=== PATIENT | female | born 1940 | race Caucasian/White ===

== ENCOUNTER 2020-10-03 12:07 | Inpatient (IN) | payer MEDICARE ==
--- NOTE | 2020-10-03 15:15 | Event Note ---
ED Screening Note Date of service: 10/03/20 Time: 15:13 ED Screening Note: 80-year-old female patient with history of atrial fibrillation and DVTs (currently anticoagulated) presents to the emergency department with complaints of bilateral lower extremity pain/swelling/redness for 2 weeks. States she was prescribed an antibiotic but cannot recall which one. States antibiotic has not been helpful. Symptoms worse on the right. General: Awake, appropriately interactive, no acute distress. Neck: Supple. Full range of motion intact. Cardiovascular: Normal peripheral perfusion. Bilateral pedal edema. Significant pretibial pitting edema of the right lower extremity. Pulmonary: No respiratory distress. Patient is speaking normally without use of accessory muscles. Supplemental O2 in place. Skin: Diffuse bilateral lower extremity erythema with overlying warmth, more pronounced on the right. Neurological: No facial asymmetry. Speech is clear. Follows commands. Patient is alert and oriented. Musculoskeletal: Moves all four extremities spontaneously with normal range of motion. Psych: Cooperative. Appropriate mood and affect. I have greeted and performed a focused rapid initial assessment of this patient. A comprehensive ED assessment and evaluation of the patient, analysis of all test results, and completion of the medical decision-making process will be conducted by additional ED providers. This initial assessment/diagnostic orders/clinical plan/treatment(s) is/are subject to change based on patients health status, clinical progression and re-assessment. Further treatment and workup at subsequent clinical provider's discretion. Patient/guardian urged not to elope from the ED as their condition may be serious if not clinically assessed and managed.
[2020-10-03 16:07] LABS: Basophils # (Auto) 0.1 K/mm3 (0.0-0.1); Basophils % (Auto) 0.5 % (0.0-1.8); Eosinophils # (Auto) 0.2 K/mm3 (0.0-0.4); Eosinophils % (Auto) 1.2 % (0.0-4.3); Hematocrit 30.6 % (30.3-42.9); Hemoglobin 9.7 gm/dl (10.1-14.3); Lymphocytes # (Auto) 1.7 K/mm3 (1.2-5.4); Lymphocytes % (Auto) 13.4 % (13.4-35.0); Mean Corpuscular HGB Conc 32 % (30-34); Mean Corpuscular Volume 88 fl (79-97); Monocytes # (Auto) 0.9 K/mm3 (0.0-0.8); Platelet Count 403 K/mm3 (140-440); Red Blood Count 3.46 M/mm3 (3.65-5.03); Red Cell Distribution Width 16.1 % (13.2-15.2)
[2020-10-03 16:12] LABS: Albumin 3.3 g/dL (3.9-5); Calcium 9.1 mg/dL (8.4-10.2)
--- NOTE | 2020-10-03 16:24 | Vascular Lab Report ---
DUPLEX DOPPLER LOWER EXTREMITY VEINS, RIGHT INDICATION / CLINICAL INFORMATION: RLE pain/swelling. TECHNIQUE: Duplex doppler imaging was performed through the veins of the right lower extremity using venous comp ression and other maneuvers. COMPARISON: None available. FINDINGS: RIGHT COMMON FEMORAL VEIN: Negative. RIGHT FEMORAL VEIN: Negative. RIGHT POPLITEAL VEIN: Negative. RIGHT CALF VEINS: Negative. ADDITIONAL FINDINGS: None. IMPRESSION: 1. No sonographic evidence for DVT in the right lower extremity. Signer Name: Emmanuel Talavera MD Signed: 10/03/2020 4:20 PM Workstation Name: [id number]
--- NOTE | 2020-10-03 16:36 | XRay Report ---
CHEST 2 VIEWS INDICATION / CLINICAL INFORMATION: bilat extremity edema; O2 dependent. COMPARISON: None available. FINDINGS: SUPPORT DEVICES: None. HEART / MEDIASTINUM: Heart size appears normal. 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 LUNGS / PLEURA: No significant pulmonary or pleural abnormality. No pneumothorax. ADDITIONAL FINDINGS: No significant additional findings. IMPRESSION: 1. No acute findings. Signer Name: Emmanuel Talavera MD Signed: 10/03/2020 4:32 PM Workstation Name: [id number]
[2020-10-03] MEDS ORDERED: FUROSEMIDE 100 MG/10 ML INJ IV ONE (21:18)
--- NOTE | 2020-10-03 21:18 | Emergency Department Report ---
HPI - General Chief Complaint: Extremity Problem,Nontraumatic Time Seen by Provider: 10/03/20 20:40 - HPI HPI: 80-year-old female with very complex medical history brought from her halfway due to significant lower extremity swelling over the past 2 weeks. The right lower extremity has been more swollen than the left. The patient states that she was put on antibiotics but it did not improve swelling. Other than the swelling in her legs which are causing her pain, she denies any associated chest pain, shortness of breath, cough, abdominal pain, fever/chills, syncope, weakness, or any other complaints. I placed a call to the patient's halfway where I spoke with a nurse from her for who indicated that the patient was placed on 10 days of antibiotics for suspected bilateral lower extremity cellulitis but this did not change the swelling. The nurse stated that Dr. Ferguson sent her to our hospital for labs, DVT ultrasound, and admission to the hospital. ED Past Medical Hx - Past Medical History Previous Medical History?: Yes Hx Hypertension: Yes Hx Congestive Heart Failure: Yes Hx GERD: Yes Hx Kidney Stones: Yes Hx Psychiatric Treatment: Yes Hx COPD: Yes Additional medical history: Gout ED Review of Systems ROS: Stated complaint: BILATERAL LEG SWELLING Other details as noted in HPI Constitutional: denies: chills, fever Eyes: denies: eye pain, vision change ENT: denies: throat pain, epistaxis Respiratory: shortness of breath (No worse than normal). denies: cough Cardiovascular: edema. denies: chest pain Gastrointestinal: denies: abdominal pain, vomiting Genitourinary: denies: dysuria Neurological: denies: headache, weakness Physical Exam - Physical Exam Vital Signs: Vital Signs 10/03/20 10/03/20 10/03/20 12:37 20:44 20:45 Temperature 98.7 F Pulse Rate 62 76 77 Respiratory 13 16 26 H Rate Blood Pressure 139/60 150/70 O2 Sat by Pulse 96 Oximetry 10/03/20 21:00 Temperature Pulse Rate 71 Respiratory 21 Rate Blood Pressure 142/74 O2 Sat by Pulse Oximetry Physical Exam: GENERAL: Well developed. Well nourished. No acute distress HEENT: Normocephalic. Atratumatic. Moist mucous membranes. EYES: Extraocular movements are intact. Pupils are equal round and reactive to light bilaterally NECK: Supple. Trachea is midline. LUNGS: Equal chest rise bilaterally. There are globally decreased breath sounds with end expiratory wheezing throughout. Difficult to assess the presence of rales. HEART/CARDIOVASCULAR: Regular rate and rhythm. No murmurs or rubs. ABDOMEN: Abdomen is soft and nondistended. . No significant tenderness, guarding or rebound. VASCULAR: There is 3+ pitting edema of the bilateral lower extremities which is more significant on the right side. There is severe weeping with scattered bruises and skin tears noted to both lower extremities. The swelling on the right extends all the way up to the thigh whereas the swelling on the left extends fpc up the thigh. There is no significant warmth compared to the rest of the body. NEURO: Patient is awake, alert, and oriented. No focal deficits. Normal motor and sensory exam throughout. Normal speech. Normal gait. MUSCULOSKELETAL: Normal ROM throughout. There is no tenderness or deformity. ED Course Vital Signs 10/03/20 10/03/20 10/03/20 12:37 20:44 20:45 Temperature 98.7 F Pulse Rate 62 76 77 Respiratory 13 16 26 H Rate Blood Pressure 139/60 150/70 O2 Sat by Pulse 96 Oximetry 10/03/20 21:00 Temperature Pulse Rate 71 Respiratory 21 Rate Blood Pressure 142/74 O2 Sat by Pulse Oximetry ED Medical Decision Making - Lab Data Result diagrams: 10/03/20 15:15 10/03/20 15:15 Laboratory Results - last 24 hr 10/03/20 10/03/20 10/03/20 15:15 15:15 15:15 WBC 12.6 H RBC 3.46 L Hgb 9.7 L Hct 30.6 MCV 88 MCH 28 MCHC 32 RDW 16.1 H Plt Count 403 Lymph % (Auto) 13.4 [place] % (Auto) 7.0 Eos % (Auto) 1.2 Baso % (Auto) 0.5 Lymph # (Auto) 1.7 [place] # (Auto) 0.9 H Eos # (Auto) 0.2 Baso # (Auto) 0.1 Seg Neutrophils % 77.9 H Seg Neutrophils # 9.8 H PT INR Sodium 131 L Potassium 4.6 Chloride 91.3 L Carbon Dioxide 29 Anion Gap 15 BUN 27 H Creatinine 1.1 Estimated GFR 48 BUN/Creatinine Ratio 25 Glucose 110 H Calcium 9.1 Magnesium 1.90 Total Bilirubin 0.20 AST 9 ALT 6 L Alkaline Phosphatase 104 Troponin T NT-Pro-B Natriuret Pep 3816 H Total Protein 7.0 Albumin 3.3 L Albumin/Globulin Ratio 0.9 10/03/20 10/03/20 21:03 21:03 WBC RBC Hgb Hct MCV MCH MCHC RDW Plt Count Lymph % (Auto) [place] % (Auto) Eos % (Auto) Baso % (Auto) Lymph # (Auto) [place] # (Auto) Eos # (Auto) Baso # (Auto) Seg Neutrophils % Seg Neutrophils # PT 33.2 H INR 3.23 H Sodium Potassium Chloride Carbon Dioxide Anion Gap BUN Creatinine Estimated GFR BUN/Creatinine Ratio Glucose Calcium Magnesium Total Bilirubin AST ALT Alkaline Phosphatase Troponin T 0.021 NT-Pro-B Natriuret Pep Total Protein Albumin Albumin/Globulin Ratio - EKG Data -: EKG Interpreted by Me - EKG Data 10/04/20 00:02 Atrial fibrillation. Normal axis. Otherwise normal intervals. No significant ST segment or T wave abnormalities. - Radiology Data CHEST 2 VIEWS INDICATION / CLINICAL INFORMATION: bilat extremity edema; O2 dependent. COMPARISON: None available. FINDINGS: SUPPORT DEVICES: None. HEART / MEDIASTINUM: Heart size appears normal. Previous aortic stent graft placement noted with residual aneurysm of the descending thoracic aorta.. LUNGS / PLEURA: No significant pulmonary or pleural abnormality. No pneumothorax. ADDITIONAL FINDINGS: No significant additional findings. IMPRESSION: 1. No acute findings. Signer Name: Emmanuel Talavera MD Signed: 10/03/2020 3:32 PM Workstation Name: [email or web address] DUPLEX DOPPLER LOWER EXTREMITY VEINS, RIGHT INDICATION / CLINICAL INFORMATION: RLE pain/swelling. TECHNIQUE: Duplex doppler imaging was performed through the veins of the right lower extremity using venous compression and other maneuvers. COMPARISON: None available. FINDINGS: RIGHT COMMON FEMORAL VEIN: Negative. RIGHT FEMORAL VEIN: Negative. RIGHT POPLITEAL VEIN: Negative. RIGHT CALF VEINS: Negative. ADDITIONAL FINDINGS: None. IMPRESSION: 1. No sonographic evidence for DVT in the right lower extremity. Signer Name: Emmanuel Talavera MD Signed: 10/03/2020 3:20 PM Workstation Name: [email or web address] - Medical Decision Making 80-year-old female with very complex medical history sent from her halfway due to right greater than left lower extremity swelling. Initially, cellulitis was suspected and the patient was placed on antibiotics for 10 days without significant improvement. According to the nurse at her halfway she was sent here for further labs and DVT ultrasound as well as admission. She is afebrile and with unremarkable vital signs. She is in no acute distress. Physical exam reveals very significant bilateral lower extremity pitting edema with weeping. On the right side the swelling is more significant and extends all the way up the thigh. There is scattered bruising and skin tears noted as well. There is no warmth to suggest infection. Full set of labs were ordered as well as DVT ultrasound. Labs reveal no significant abnormalities with the exception of elevated BNP of 3800 and very mildly elevated troponin of 0.02 and INR of 3.2. Chest x-ray shows no significant abnormalities although there are scattered opacities which could represent volume overload. DVT ultrasound of the right lower extremity reveals no evidence of DVT. At 9:20 PM I spoke with Dr. Quintanilla who is covering for the patient's Dr., Dr. Jordan perla. We discussed the results and he states that Dr. Ferguson wanted the patient admitted for diuresis. We will give 60 mg of IV Lasix and admit the patient to medicine for further management. Critical Care Time: No Critical care attestation.: If time is entered above; I have spent that time in minutes in the direct care of this critically ill patient, excluding procedure time. ED Disposition Clinical Impression: Volume overload, CHF (congestive heart failure) Disposition: OP ADMIT IP TO THIS HOSP Is pt being admited?: Yes Condition: Fair
[2020-10-03 21:26] LABS: INR 3.23 (0.87-1.13)
[2020-10-03] MEDS ORDERED: NITROGLYCERIN 0.4 MG TAB SUBL SL PRN (22:29)
[2020-10-03] MEDS ORDERED: hydrALAZINE 20 MG/1 ML INJ IV PRN (22:31)
--- NOTE | 2020-10-03 22:38 | History and Physical Report ---
History of Present Illness Date of examination: 10/03/20 Date of admission: 10/03/20 Chief complaint: Bilateral lower extremity swelling/cellulitis History of present illness: 80-year-old female with past medical history of hypertension, congestive heart failure, GERD kidney stone COPD and gout was brought from her halfway due to significant lower extremity swelling over the past 2 weeks. The right lower extremity has been more swollen than the left. The patient states that she was put on antibiotics but it did not improve swelling. Other than the swelling in her legs which are causing her pain, she denies any associated chest pain, shortness of breath, cough, abdominal pain, fever/chills, syncope, weakness, or any other complaints. In the emergency room patient is found to have volume overloaded/CHF exacerbation and proBNP is 3816, troponin 0 0.021. Also patient has bilateral lower extremity cellulitis, WBCs 12.6 Past History Past Medical History: COPD, GERD, heart failure, hypertension, other (Kidney stones, psych problem, COPD and gout) Medications and Allergies Allergies Allergy/AdvReac Type Severity Reaction Status Date / Time cephalexin [From Keflex] Allergy Hives Verified 10/03/20 12:38 Sulfa (Sulfonamide Allergy Hives Verified 10/03/20 12:38 Antibiotics) magnesium hydroxide AdvReac Unknown Verified 10/03/20 12:38 [From Milk of Magnesia] Review of Systems Musculoskeletal: other (Bilateral lower extremity swelling, cellulitis) Exam - Constitutional Vitals: Temp Pulse Resp BP Pulse Ox 98.7 F 67 15 161/62 78 L 10/03/20 12:37 10/03/20 22:30 10/03/20 22:30 10/03/20 22:30 10/03/20 22:30 General appearance: Present: no acute distress, well-nourished - EENT Eyes: Present: PERRL ENT: hearing intact, clear oral mucosa - Neck Neck: Present: supple, normal ROM - Respiratory Respiratory effort: normal Respiratory: bilateral: CTA - Cardiovascular Heart Sounds: Present: S1 & S2. Absent: rub, click - Extremities Extremities: pulses symmetrical Extremity abnormal: edema, erythema Peripheral Pulses: within normal limits - Abdominal General gastrointestinal: Present: soft, non-tender, non-distended, normal bowel sounds Female genitourinary: Present: normal - Integumentary Integumentary: Present: clear, warm, dry - Musculoskeletal Musculoskeletal: gait normal, strength equal bilaterally - Psychiatric Psychiatric: appropriate mood/affect, intact judgment & insight - Neurologic Neurologic: CNII-XII intact, moves all extremities HEART Score - HEART Score Troponin: Troponin T 0.021 ng/mL (0.00-0.029) 10/03/20 21:03 Results - Labs CBC & Chem 7: 10/03/20 15:15 10/03/20 15:15 Labs: Laboratory Last Values WBC 12.6 K/mm3 (4.5-11.0) H 10/03/20 15:15 RBC 3.46 M/mm3 (3.65-5.03) L 10/03/20 15:15 Hgb 9.7 gm/dl (10.1-14.3) L 10/03/20 15:15 Hct 30.6 % (30.3-42.9) 10/03/20 15:15 MCV 88 fl (79-97) 10/03/20 15:15 MCH 28 pg (28-32) 10/03/20 15:15 MCHC 32 % (30-34) 10/03/20 15:15 RDW 16.1 % (13.2-15.2) H 10/03/20 15:15 Plt Count 403 K/mm3 (140-440) 10/03/20 15:15 Lymph % (Auto) 13.4 % (13.4-35.0) 10/03/20 15:15 [place] % (Auto) 7.0 % (0.0-7.3) 10/03/20 15:15 Eos % (Auto) 1.2 % (0.0-4.3) 10/03/20 15:15 Baso % (Auto) 0.5 % (0.0-1.8) 10/03/20 15:15 Lymph # (Auto) 1.7 K/mm3 (1.2-5.4) 10/03/20 15:15 [place] # (Auto) 0.9 K/mm3 (0.0-0.8) H 10/03/20 15:15 Eos # (Auto) 0.2 K/mm3 (0.0-0.4) 10/03/20 15:15 Baso # (Auto) 0.1 K/mm3 (0.0-0.1) 10/03/20 15:15 Seg Neutrophils % 77.9 % (40.0-70.0) H 10/03/20 15:15 Seg Neutrophils # 9.8 K/mm3 (1.8-7.7) H 10/03/20 15:15 PT 33.2 Sec. (12.2-14.9) H 10/03/20 21:03 INR 3.23 (0.87-1.13) H 10/03/20 21:03 Sodium 131 mmol/L (137-145) L 10/03/20 15:15 Potassium 4.6 mmol/L (3.6-5.0) 10/03/20 15:15 Chloride 91.3 mmol/L (98-107) L 10/03/20 15:15 Carbon Dioxide 29 mmol/L (22-30) 10/03/20 15:15 Anion Gap 15 mmol/L 10/03/20 15:15 BUN 27 mg/dL (7-17) H 10/03/20 15:15 Creatinine 1.1 mg/dL (0.6-1.2) 10/03/20 15:15 Estimated GFR 48 ml/min 10/03/20 15:15 BUN/Creatinine Ratio 25 % 10/03/20 15:15 Glucose 110 mg/dL (65-100) H 10/03/20 15:15 Calcium 9.1 mg/dL (8.4-10.2) 10/03/20 15:15 Magnesium 1.90 mg/dL (1.7-2.3) 10/03/20 15:15 Total Bilirubin 0.20 mg/dL (0.1-1.2) 10/03/20 15:15 AST 9 units/L (5-40) 10/03/20 15:15 ALT 6 units/L (7-56) L 10/03/20 15:15 Alkaline Phosphatase 104 units/L (35-129) 10/03/20 15:15 Troponin T 0.021 ng/mL (0.00-0.029) 10/03/20 21:03 NT-Pro-B Natriuret Pep 3816 pg/mL (0-900) H 10/03/20 15:15 Total Protein 7.0 g/dL (6.3-8.2) 10/03/20 15:15 Albumin 3.3 g/dL (3.9-5) L 10/03/20 15:15 Albumin/Globulin Ratio 0.9 % 10/03/20 15:15 - Imaging and Cardiology Chest x-ray: report reviewed Assessment and Plan VTE prophylaxis?: Chemical Plan of care discussed with patient/family: Yes - Patient Problems (1) CHF (congestive heart failure) Current Visit: Yes Status: Acute Plan to address problem: Admit the patient to the medical floor. Put the patient on cardiac diet. Lasix 40 mg IV daily. Fluid restriction. Will maintain intake and output. Daily weight. Echocardiogram. If needed will consult cardiology (2) Volume overload Current Visit: Yes Status: Acute Plan to address problem: Put the patient on cardiac diet. Lasix 40 mg IV daily. Fluid restriction. Will maintain intake and output. Daily weight. Echocardiogram. If needed will consult cardiology (3) Cellulitis, leg Current Visit: Yes Status: Acute Plan to address problem: Levaquin 750 mg p.o. daily. We will do the wound culture and will consult wound care evaluation. Recheck CBC in the morning (4) Gout Current Visit: Yes Status: Acute Plan to address problem: Stable we will continue the home medication (5) Hypertension Current Visit: Yes Status: Acute Plan to address problem: Hydralazine 10 mg IV every 6 hours as needed. We put the patient on cardiac diet. We will monitor the blood pressure closely (6) GERD (gastroesophageal reflux disease) Current Visit: Yes Status: Acute Plan to address problem: Protonix 40 mg p.o. daily. Zofran 4 mg IV every 6 hours as needed. (7) DVT prophylaxis Current Visit: Yes Status: Acute Plan to address problem: Heparin 5000 units subcu every 8 hours for DVT prophylaxis. Protonix 40 mg p.o. daily for GI prophylaxis. Patient is a full code
[2020-10-04] MEDS: HEPARIN 5,000 UNIT/1 ML VIAL SUB-Q SCH ×3 (05:05→21:15)
[2020-10-04 06:01] LABS: Calcium 8.8 mg/dL (8.4-10.2)
[2020-10-04] MEDS: PANTOPRAZOLE 40 MG TAB PO SCH (09:31)
[2020-10-04] MEDS: FUROSEMIDE 40 MG/4 ML INJ IV SCH (09:31)
[2020-10-04] MEDS: levoFLOXacin 750 MG TAB PO SCH (09:34)
[2020-10-04] MEDS ORDERED: VANCOMYCIN/NS 1 GM/250 ML 1 GM/250 ML BAG IV SCH (10:00)
[2020-10-04] MEDS ORDERED: levoFLOXacin 750 MG TAB PO SCH (10:00)
--- NOTE | 2020-10-04 10:10 | Progress Note ---
Subjective Date of service: 10/04/20 Interval history: History of present illness: 80-year-old female with past medical history of hypertension, congestive heart failure, GERD kidney stone COPD and gout was brought from her alf due to significant lower extremity swelling over the past 2 weeks. The right lower extremity has been more swollen than the left. The patient states that she was put on antibiotics but it did not improve swelling. Other than the swelling in her legs which are causing her pain, she denies any associated chest pain, shortness of breath, cough, abdominal pain, fever/chills, syncope, weakness, or any other complaints. In the emergency room patient is found to have volume overloaded/CHF exacerbation and proBNP is 3816, troponin 0 0.021. Also patient has bilateral lower extremity cellulitis, WBCs 12.6 10/04 patient is alert and oriented and not in any distress. She offers no specific complaints except some pain in the legs right more than left She denies any fever or chills. Denies chest pain or shortness of breath. Lab results reviewed A/P: Bilateral leg edema/erythema Suspect cellulitis Rule out venous insufficiency Patient was treated with clindamycin p.o. at the nursing facility without any improvement in the erythema Since then it only got worse and now has some hemorrhagic blisters Patient was started on Levaquin We will add vancomycin Recent arterial Doppler showed no evidence of PAD Discussed with Dr. Miguel Curtis consult placed History of ischemic cardiomyopathy Check echocardiogram Chest x-ray reviewed No evidence of pulmonary edema P BNP results reviewed Cardiology consult placed Continue IV Lasix Restart on beta-héctor Telemetry Fluid restriction Monitor I's and O's History of atrial fibrillation on warfarin INR is mildly supratherapeutic Warfarin on hold Recheck INR in a.m.\ Hypertension Fair History of GERD Continue Pepcid History of anxiety/depression continue citalopram and trazodone Hypothyroidism Continue Synthroid Objective - Constitutional Vitals: Vital Signs - 12hr 10/03/20 10/03/20 10/03/20 22:16 22:30 22:32 Temperature Pulse Rate 76 67 68 Respiratory 18 15 21 Rate Blood Pressure 135/58 161/62 161/62 O2 Sat by Pulse 80 L 78 L 97 Oximetry 10/03/20 10/03/20 10/03/20 22:34 22:36 22:38 Temperature Pulse Rate 69 67 69 Respiratory 16 21 24 Rate Blood Pressure 161/62 161/62 161/62 O2 Sat by Pulse 98 99 89 Oximetry 10/03/20 10/03/20 10/03/20 22:40 22:42 22:44 Temperature Pulse Rate 68 68 65 Respiratory 18 15 19 Rate Blood Pressure 161/62 161/62 161/62 O2 Sat by Pulse 99 85 86 Oximetry 10/03/20 10/03/20 10/03/20 22:46 22:48 22:50 Temperature Pulse Rate 63 70 62 Respiratory 18 22 15 Rate Blood Pressure 161/62 161/62 161/62 O2 Sat by Pulse 78 L 89 Oximetry 10/03/20 10/03/20 10/03/20 22:52 22:53 22:54 Temperature 98.9 F Pulse Rate 65 70 Respiratory 22 20 Rate Blood Pressure 161/62 161/62 O2 Sat by Pulse 94 99 Oximetry 10/03/20 10/03/20 10/03/20 22:56 22:58 22:59 Temperature Pulse Rate 69 67 64 Respiratory 21 23 24 Rate Blood Pressure 161/62 167/74 167/74 O2 Sat by Pulse 99 97 Oximetry 10/03/20 10/03/20 10/03/20 23:00 23:02 23:04 Temperature Pulse Rate 69 64 71 Respiratory 22 18 28 H Rate Blood Pressure 167/74 167/74 167/74 O2 Sat by Pulse 91 99 97 Oximetry 10/03/20 10/03/20 10/03/20 23:06 23:08 23:10 Temperature Pulse Rate 70 67 74 Respiratory 19 18 20 Rate Blood Pressure 167/74 167/74 167/74 O2 Sat by Pulse 88 100 100 Oximetry 10/03/20 10/03/20 10/03/20 23:12 23:14 23:16 Temperature Pulse Rate 71 66 77 Respiratory 19 21 21 Rate Blood Pressure 167/74 167/74 167/74 O2 Sat by Pulse 89 100 99 Oximetry 10/03/20 10/03/20 10/03/20 23:18 23:20 23:22 Temperature Pulse Rate 69 73 67 Respiratory 19 19 19 Rate Blood Pressure 167/74 167/74 167/74 O2 Sat by Pulse 99 99 100 Oximetry 10/03/20 10/03/20 10/03/20 23:24 23:26 23:28 Temperature Pulse Rate 68 77 96 H Respiratory 18 22 28 H Rate Blood Pressure 167/74 167/74 167/74 O2 Sat by Pulse 94 88 99 Oximetry 10/03/20 10/03/20 10/03/20 23:30 23:32 23:34 Temperature Pulse Rate 91 H 78 74 Respiratory 23 19 17 Rate Blood Pressure 193/78 193/78 193/78 O2 Sat by Pulse 100 99 100 Oximetry 10/03/20 10/03/20 10/03/20 23:36 23:38 23:40 Temperature Pulse Rate 78 77 76 Respiratory 18 17 14 Rate Blood Pressure 193/78 193/78 193/78 O2 Sat by Pulse 98 98 94 Oximetry 10/03/20 10/03/20 10/03/20 23:42 23:44 23:46 Temperature Pulse Rate 78 72 74 Respiratory 12 14 16 Rate Blood Pressure 193/78 193/78 193/78 O2 Sat by Pulse 98 98 94 Oximetry 10/04/20 10/04/20 10/04/20 00:06 00:43 03:46 Temperature 98.0 F Pulse Rate 72 73 108 H Respiratory 16 29 H Rate Blood Pressure 162/50 200/111 O2 Sat by Pulse 100 89 Oximetry 10/04/20 10/04/20 10/04/20 05:01 07:50 08:00 Temperature 99.4 F 97.8 F Pulse Rate 71 60 74 Respiratory 16 20 Rate Blood Pressure 143/57 146/49 O2 Sat by Pulse 98 100 Oximetry General appearance: Present: no acute distress, well-nourished - EENT Eyes: PERRL, EOM intact ENT: hearing intact, clear oral mucosa - Neck Neck: supple, normal ROM, no masses or JVD - Respiratory Respiratory effort: normal Respiratory: bilateral: CTA - Cardiovascular Rhythm: regular Heart Sounds: Present: S1 & S2 Extremity abnormal: edema (Bilateral 2+ pitting leg edema with erythema and hemorrhagic blisters) - Gastrointestinal General gastrointestinal: Present: soft, non-tender Rectal Exam: deferred - Genitourinary Female genitourinary: deferred - Integumentary Integumentary: erythema - Musculoskeletal Musculoskeletal: strength equal bilaterally - Neurologic Neurologic: moves all extremities - Psychiatric Psychiatric: appropriate mood/affect - Labs CBC & Chem 7: 10/03/20 15:15 10/04/20 05:09 Labs: Abnormal lab results 10/03/20 10/03/20 10/03/20 Range/Units 15:15 15:15 15:15 WBC 12.6 H (4.5-11.0) K/mm3 RBC 3.46 L (3.65-5.03) M/mm3 Hgb 9.7 L (10.1-14.3) gm/dl RDW 16.1 H (13.2-15.2) % [place] # (Auto) 0.9 H (0.0-0.8) K/mm3 Seg Neutrophils % 77.9 H (40.0-70.0) % Seg Neutrophils # 9.8 H (1.8-7.7) K/mm3 PT (12.2-14.9) Sec. INR (0.87-1.13) Sodium 131 L (137-145) mmol/L Chloride 91.3 L (98-107) mmol/L Carbon Dioxide (22-30) mmol/L BUN 27 H (7-17) mg/dL Glucose 110 H (65-100) mg/dL ALT 6 L (7-56) units/L NT-Pro-B Natriuret Pep 3816 H (0-900) pg/mL Albumin 3.3 L (3.9-5) g/dL 10/03/20 10/04/20 Range/Units 21:03 05:09 WBC (4.5-11.0) K/mm3 RBC (3.65-5.03) M/mm3 Hgb (10.1-14.3) gm/dl RDW (13.2-15.2) % [place] # (Auto) (0.0-0.8) K/mm3 Seg Neutrophils % (40.0-70.0) % Seg Neutrophils # (1.8-7.7) K/mm3 PT 33.2 H (12.2-14.9) Sec. INR 3.23 H (0.87-1.13) Sodium (137-145) mmol/L Chloride 93.7 L (98-107) mmol/L Carbon Dioxide 33 H (22-30) mmol/L BUN 29 H (7-17) mg/dL Glucose 115 H (65-100) mg/dL ALT (7-56) units/L NT-Pro-B Natriuret Pep (0-900) pg/mL Albumin (3.9-5) g/dL HEART Score - HEART Score Troponin: Troponin T 0.021 ng/mL (0.00-0.029) 10/03/20 21:03
[2020-10-04] MEDS ORDERED: VANCOMYCIN 1,250 MG in SODIUM CHLORIDE 0.9% 250ML 250 ML IV ONE (11:00)
[2020-10-04] MEDS: FAMOTIDINE 20 MG TAB PO SCH ×2 (12:31→21:14)
[2020-10-04] MEDS: METOPROLOL TARTRATE 50 MG TAB PO SCH ×2 (12:32→21:14)
--- NOTE | 2020-10-04 13:48 | Consultation ---
History of Present Illness Consult date: 10/04/20 Requesting physician: MASON ALBARRAN Consult reason: abnormal cardiac enzymes, atrial fibrillation, congestive heart failure History of present illness: 80-year-old female who [facility] presented to [facility] emergency department with increasing bilateral lower extremity pain and redness. The patient had completed a 10-day course of antibiotics/clindamycin with no improvement. She has a known past medical history of permanent atrial fibrillation, deep vein thrombosis, ischemic cardiomyopathy, hypertension, history of GERD, history of anxiety/depression, and hypothyroidism. In the emergency department she was noted to have a leukocytosis of 12.6. Troponin of 0.021 and a proBNP of 3816. She had a right lower extremity venous Doppler which was negative for DVT chest x-ray was negative for any acute abnormalities. Twelve-lead EKG revealed atrial fibrillation with right bundle branch block and no acute changes. Past History Past Medical History: COPD, GERD, heart failure, hypertension, other (Kidney stones, psych problem, COPD and gout) Past Surgical History: No surgical history Social history: no significant social history Family history: no significant family history Medications and Allergies Allergies Allergy/AdvReac Type Severity Reaction Status Date / Time cephalexin [From Keflex] Allergy Hives Verified 10/03/20 12:38 Sulfa (Sulfonamide Allergy Hives Verified 10/03/20 12:38 Antibiotics) magnesium hydroxide AdvReac Unknown Verified 10/03/20 12:38 [From Milk of Magnesia] Active Meds: Active Medications Citalopram Hydrobromide (Citalopram 10 Mg Tab) 10 mg PO QDAY [facility] Famotidine (Famotidine 20 Mg Tab) 20 mg PO BID [facility] Last Admin: 10/04/20 12:31 Dose: 20 mg Documented by: Furosemide (Furosemide 40 Mg/4 Ml Inj) 40 mg IV QDAY [facility] Last Admin: 10/04/20 09:31 Dose: 40 mg Documented by: Heparin Sodium (Porcine) (Heparin 5,000 Unit/1 Ml Vial) 5,000 unit SUB-Q Q8HR [facility] Last Admin: 10/04/20 05:05 Dose: 5,000 unit Documented by: Hydralazine HCl (Hydralazine 20 Mg/1 Ml Inj) 10 mg IV Q6H PRN PRN Reason: htn Vancomycin HCl 750 mg/ Sodium (Chloride) 265 mls @ 176.667 mls/hr IV Q24H [facility] Levofloxacin (Levofloxacin 750 Mg Tab) 750 mg PO Q48HR [facility]; Protocol Last Admin: 10/04/20 09:34 Dose: 750 mg Documented by: Levothyroxine Sodium (Levothyroxine 75 Mcg Tab) 75 mcg PO DAILY@0600 [facility] Metoprolol Tartrate (Metoprolol Tartrate 50 Mg Tab) 50 mg PO BID [facility] Last Admin: 10/04/20 12:32 Dose: 50 mg Documented by: Nitroglycerin (Nitroglycerin 0.4 Mg Tab Subl) 0.4 mg SL .Q5MIN PRN PRN Reason: Chest Pain Pantoprazole Sodium (Pantoprazole 40 Mg Tab) 40 mg PO QDAC [facility] Last Admin: 10/04/20 09:31 Dose: 40 mg Documented by: Trazodone HCl (Trazodone 50 Mg Tab) 50 mg PO QHS [facility] Review of Systems Constitutional: no fever, no chills Breasts: deferred Cardiovascular: edema, no chest pain, no syncope Respiratory: no cough, no hemoptysis Gastrointestinal: no abdominal pain, no nausea, no vomiting Musculoskeletal: no neck stiffness, no neck pain Integumentary: redness, no rash, no pruritis Physical Examination Vital Signs Temp Pulse Resp BP Pulse Ox 98.7 F 62 13 139/60 96 10/03/20 12:37 10/03/20 12:37 10/03/20 12:37 10/03/20 12:37 10/03/20 12:37 General appearance: no acute distress HEENT: Positive: PERRL Neck: Positive: neck supple, trachea midline Cardiac: Positive: Irregularly Regular Lungs: Positive: Decreased Breath Sounds Neuro: Positive: Grossly Intact Abdomen: Positive: Soft, Active Bowel Sounds Female genitourinary: deferred Skin: Positive: Other (Skin tears in her upper and lower extremities) Extremities: Present: edema, warm Results 10/03/20 15:15 10/04/20 05:09 Cardiac Enzymes 10/03/20 Range/Units 15:15 AST 9 (5-40) units/L Coagulation 10/03/20 Range/Units 21:03 PT 33.2 H (12.2-14.9) Sec. INR 3.23 H (0.87-1.13) CBC 10/03/20 Range/Units 15:15 WBC 12.6 H (4.5-11.0) K/mm3 RBC 3.46 L (3.65-5.03) M/mm3 Hgb 9.7 L (10.1-14.3) gm/dl Hct 30.6 (30.3-42.9) % Plt Count 403 (140-440) K/mm3 Lymph # (Auto) 1.7 (1.2-5.4) K/mm3 [place] # (Auto) 0.9 H (0.0-0.8) K/mm3 Eos # (Auto) 0.2 (0.0-0.4) K/mm3 Baso # (Auto) 0.1 (0.0-0.1) K/mm3 Comprehensive Metabolic Panel 10/03/20 10/04/20 Range/Units 15:15 05:09 Sodium 131 L 138 D (137-145) mmol/L Potassium 4.6 4.7 (3.6-5.0) mmol/L Chloride 91.3 L 93.7 L (98-107) mmol/L Carbon Dioxide 29 33 H (22-30) mmol/L BUN 27 H 29 H (7-17) mg/dL Creatinine 1.1 1.1 (0.6-1.2) mg/dL Glucose 110 H 115 H (65-100) mg/dL Calcium 9.1 8.8 (8.4-10.2) mg/dL AST 9 (5-40) units/L ALT 6 L (7-56) units/L Alkaline Phosphatase 104 (35-129) units/L Total Protein 7.0 (6.3-8.2) g/dL Albumin 3.3 L (3.9-5) g/dL EKG interpretations - Telemetry EKG Rhythm: Atrial Fibrillation Assessment and Plan Bilateral lower extremity edema/cellulitis Acute on chronic CHF Elevated cardiac enzymes Leukocytosis History of ischemic cardiomyopathy History of atrial fibrillation/warfarin Hypertension GERD Hypothyroidism History of anxiety and depression Agree with gentle diuresis, monitor creatinine, potassium, and magnesium levels Agree with echocardiogram Continue oral anticoagulation with a goal INR of 2-3 Continue metoprolol 50 mg twice daily Agree with empiric antibiotics
--- NOTE | 2020-10-04 15:48 | Consultation ---
History of Present Illness - Reason for Consult Consult date: 10/04/20 Right Lower Extremity Edema with Cellulitis Requesting physician: MASON ALBARRAN - History of Present Illness The patient is a 80-year-old female with a history of right lower extremity swelling that began in August. She believes she hit her leg on a wheelchair and began having the swelling that progressively worsened. She has an associated cellulitis and was started on clindamycin several weeks ago however there has been no improvement. She has had multiple venous duplex of the right lower extremity which have all been negative for acute or chronic DVT. She has pain in bilateral lower extremities secondary to her swelling however the right lower extremity is significantly more edematous than the left which leads to more pain in the right. The right lower extremity edema does not significantly improve with elevation. She has no additional complaints at this time. Past History Past Medical History: COPD, GERD, heart failure, hypertension, other (Kidney stones, psych problem, COPD and gout) Past Surgical History: No surgical history Social history: no significant social history Family history: no significant family history Medications and Allergies Allergies Allergy/AdvReac Type Severity Reaction Status Date / Time cephalexin [From Keflex] Allergy Hives Verified 10/03/20 12:38 Sulfa (Sulfonamide Allergy Hives Verified 10/03/20 12:38 Antibiotics) magnesium hydroxide AdvReac Unknown Verified 10/03/20 12:38 [From Milk of Magnesia] Active Meds: Active Medications Citalopram Hydrobromide (Citalopram 10 Mg Tab) 10 mg PO QDAY [facility] Famotidine (Famotidine 20 Mg Tab) 20 mg PO BID [facility] Last Admin: 10/04/20 12:31 Dose: 20 mg Documented by: Furosemide (Furosemide 40 Mg/4 Ml Inj) 40 mg IV QDAY [facility] Last Admin: 10/04/20 09:31 Dose: 40 mg Documented by: Heparin Sodium (Porcine) (Heparin 5,000 Unit/1 Ml Vial) 5,000 unit SUB-Q Q8HR [facility] Last Admin: 10/04/20 14:39 Dose: 5,000 unit Documented by: Hydralazine HCl (Hydralazine 20 Mg/1 Ml Inj) 10 mg IV Q6H PRN PRN Reason: htn Vancomycin HCl 750 mg/ Sodium (Chloride) 265 mls @ 176.667 mls/hr IV Q24H [facility] Levofloxacin (Levofloxacin 750 Mg Tab) 750 mg PO Q48HR [facility]; Protocol Last Admin: 10/04/20 09:34 Dose: 750 mg Documented by: Levothyroxine Sodium (Levothyroxine 75 Mcg Tab) 75 mcg PO DAILY@0600 [facility] Metoprolol Tartrate (Metoprolol Tartrate 50 Mg Tab) 50 mg PO BID [facility] Last Admin: 10/04/20 12:32 Dose: 50 mg Documented by: Nitroglycerin (Nitroglycerin 0.4 Mg Tab Subl) 0.4 mg SL .Q5MIN PRN PRN Reason: Chest Pain Pantoprazole Sodium (Pantoprazole 40 Mg Tab) 40 mg PO QDAC [facility] Last Admin: 10/04/20 09:31 Dose: 40 mg Documented by: Trazodone HCl (Trazodone 50 Mg Tab) 50 mg PO QHS [facility] Review of Systems All systems: negative Exam - Constitutional Vitals: Temp Pulse Resp BP Pulse Ox 97.8 F 73 20 141/59 98 10/04/20 12:13 10/04/20 12:13 10/04/20 12:13 10/04/20 12:13 10/04/20 12:13 General appearance: Present: no acute distress - EENT ENT: hearing decreased - Cardiovascular Rhythm: irregularly irregular - Extremities Extremity abnormal: edema (Edema of bilateral lower extremities however the right lower extremity is significantly more edematous than left. Skin tears on bilateral lower extremities. Severe erythema and cellulitis of the right lower extremity extending from the foot to the groin) - Abdominal General gastrointestinal: Present: soft Results - Labs CBC & Chem 7: 10/03/20 15:15 10/04/20 05:09 Labs: Abnormal lab results 10/03/20 10/03/20 10/03/20 Range/Units 15:15 15:15 15:15 WBC 12.6 H (4.5-11.0) K/mm3 RBC 3.46 L (3.65-5.03) M/mm3 Hgb 9.7 L (10.1-14.3) gm/dl RDW 16.1 H (13.2-15.2) % [place] # (Auto) 0.9 H (0.0-0.8) K/mm3 Seg Neutrophils % 77.9 H (40.0-70.0) % Seg Neutrophils # 9.8 H (1.8-7.7) K/mm3 PT (12.2-14.9) Sec. INR (0.87-1.13) Sodium 131 L (137-145) mmol/L Chloride 91.3 L (98-107) mmol/L Carbon Dioxide (22-30) mmol/L BUN 27 H (7-17) mg/dL Glucose 110 H (65-100) mg/dL ALT 6 L (7-56) units/L NT-Pro-B Natriuret Pep 3816 H (0-900) pg/mL Albumin 3.3 L (3.9-5) g/dL 10/03/20 10/04/20 Range/Units 21:03 05:09 WBC (4.5-11.0) K/mm3 RBC (3.65-5.03) M/mm3 Hgb (10.1-14.3) gm/dl RDW (13.2-15.2) % [place] # (Auto) (0.0-0.8) K/mm3 Seg Neutrophils % (40.0-70.0) % Seg Neutrophils # (1.8-7.7) K/mm3 PT 33.2 H (12.2-14.9) Sec. INR 3.23 H (0.87-1.13) Sodium (137-145) mmol/L Chloride 93.7 L (98-107) mmol/L Carbon Dioxide 33 H (22-30) mmol/L BUN 29 H (7-17) mg/dL Glucose 115 H (65-100) mg/dL ALT (7-56) units/L NT-Pro-B Natriuret Pep (0-900) pg/mL Albumin (3.9-5) g/dL - Imaging and Cardiology CT scan - pelvis: image reviewed Assessment and Plan The patient is a 80-year-old female with a history of bilateral lower extremity edema however the right is significantly more edematous than the left with associated cellulitis. She has had a course of oral antibiotics without significant improvement. She has had multiple venous duplex performed on the right lower extremity and they have all been negative for DVT. I will order a CT scan of the abdomen as well as the lower extremity to evaluate the cellulitis as well as to evaluate for any possible obstructive component. Ultimately the patient may require a venogram of the lower extremity to diagnose and treat any possible deep venous obstruction to relieve her symptoms if found.
--- NOTE | 2020-10-04 18:37 | Cat Scan Report ---
CT lower extremity RT w con INDICATION: right leg swelling and cellulitis. TECHNIQUE: All CT scans at this location are performed using CT dose reduction for ALARA by means of automated e xposure control. COMPARISON: None available. FINDINGS: Marked subcutaneous edema and enhancement right calf and moderate subcutaneous edema and enhancement right distal thigh characteristic for cellulitis. No drainable fluid collection/abscess. No CT eviden ce for myositis or fasciitis. Osteopenia. No intrinsic osseous lesions right distal femur or foreleg. Moderate degenerative changes of right knee with moderate knee effusion. IMPRESSION: 1. Moderate cellulitis right distal thigh and marked cellulitis of right calf. No drainable fluid col lections/abscess. Signer Name: Maxime Bañuelos MD Signed: 10/04/2020 6:33 PM Workstation Name: [id number]
[2020-10-04] MEDS: traZODone 50 MG TAB PO SCH (21:14)
[2020-10-05] MEDS: HEPARIN 5,000 UNIT/1 ML VIAL SUB-Q SCH (04:59)
[2020-10-05] MEDS: LEVOTHYROXINE 75 MCG TAB PO SCH (04:59)
[2020-10-05 07:03] LABS: Hematocrit 26.1 % (30.3-42.9); Hemoglobin 8.5 gm/dl (10.1-14.3); Mean Corpuscular HGB Conc 33 % (30-34); Mean Corpuscular Volume 85 fl (79-97); Platelet Count 399 K/mm3 (140-440); Red Blood Count 3.06 M/mm3 (3.65-5.03); Red Cell Distribution Width 15.9 % (13.2-15.2)
[2020-10-05 07:09] LABS: INR 2.95 (0.87-1.13)
[2020-10-05 07:15] LABS: Calcium 8.5 mg/dL (8.4-10.2)
[2020-10-05] MEDS: FAMOTIDINE 20 MG TAB PO SCH ×3 (09:04→23:39)
[2020-10-05] MEDS: METOPROLOL TARTRATE 50 MG TAB PO SCH ×3 (09:04→21:39)
[2020-10-05] MEDS: PANTOPRAZOLE 40 MG TAB PO SCH (09:04)
[2020-10-05] MEDS: FUROSEMIDE 40 MG/4 ML INJ IV SCH (09:05)
[2020-10-05] MEDS: POTASSIUM CHLORIDE ER 10 MEQ TAB PO SCH (09:08)
--- NOTE | 2020-10-05 11:09 | Progress Note ---
Subjective Date of service: 10/05/20 Interval history: History of present illness: 80-year-old female with past medical history of hypertension, congestive heart failure, GERD kidney stone COPD and gout was brought from her shelter due to significant lower extremity swelling over the past 2 weeks. The right lower extremity has been more swollen than the left. The patient states that she was put on antibiotics but it did not improve swelling. Other than the swelling in her legs which are causing her pain, she denies any associated chest pain, shortness of breath, cough, abdominal pain, fever/chills, syncope, weakness, or any other complaints. In the emergency room patient is found to have volume overloaded/CHF exacerbation and proBNP is 3816, troponin 0 0.021. Also patient has bilateral lower extremity cellulitis, WBCs 12.6 10/04 patient is alert and oriented and not in any distress. She offers no specific complaints except some pain in the legs right more than left She denies any fever or chills. Denies chest pain or shortness of breath. Lab results reviewed 10/05 patient is alert and oriented and not in any distress. She offers no specific complaints. Denies chest pain or shortness of breath. Denies fever or chills. Cardiology and vascular notes reviewed. Lab results reviewed. A/P: Bilateral leg edema/erythema-improving Likely cellulitis Rule out venous insufficiency Patient was treated with clindamycin p.o. at the nursing facility without any improvement in the erythema Since then it only got worse and now has some hemorrhagic blisters Patient was started on Levaquin Continue vancomycin Recent arterial Doppler showed no evidence of PAD Discussed with Dr. Miguel Curtis consult placed CT of the lower extremity done , results pending Left leg edema significantly improved Continue gentle diuresis History of ischemic cardiomyopathy Check echocardiogram Chest x-ray reviewed No evidence of pulmonary edema P BNP results reviewed Cardiology consulted and note reviewed Continue IV Lasix Patient has a negative fluid balance of 580 mL in the past 24 hours Will start on daily potassium supplement of 10 mEq as the serum potassium is trending down secondary to IV Lasix Continue beta-héctor Telemetry Fluid restriction Monitor I's and O's History of atrial fibrillation on warfarin INR is in the therapeutic range today We will start the patient on warfarin at 2 mg Monitor daily INR Hypertension Fair History of GERD Continue Pepcid History of anxiety/depression continue citalopram and trazodone Hypothyroidism Continue Synthroid Objective - Constitutional Vitals: Vital Signs - 12hr 10/04/20 10/05/20 10/05/20 23:28 05:02 07:14 Temperature 98.0 F 98.6 F 98.7 F Pulse Rate 56 L 68 64 Respiratory 18 20 Rate Blood Pressure 133/59 147/66 Blood Pressure 138/68 [Left] O2 Sat by Pulse 84 96 Oximetry 10/05/20 10/05/20 08:27 09:04 Temperature Pulse Rate Respiratory Rate Blood Pressure 147/66 Blood Pressure [Left] O2 Sat by Pulse 92 Oximetry General appearance: Present: no acute distress, well-nourished - EENT Eyes: PERRL, EOM intact - Neck Neck: supple, normal ROM - Respiratory Respiratory effort: normal Respiratory: bilateral: CTA - Cardiovascular Rhythm: regular Heart Sounds: Present: S1 & S2 Extremity abnormal: edema (2+ right leg /pedal pitting edema, left leg edema improved, bilateral erythema with hemorrhagic blisters) - Gastrointestinal General gastrointestinal: Present: soft Rectal Exam: deferred - Genitourinary Female genitourinary: deferred - Integumentary Integumentary: clear - Musculoskeletal Musculoskeletal: generalized weakness - Neurologic Neurologic: moves all extremities - Psychiatric Psychiatric: appropriate mood/affect - Labs CBC & Chem 7: 10/05/20 05:33 10/05/20 05:33 Labs: Abnormal lab results 10/05/20 10/05/20 10/05/20 Range/Units 05:33 05:33 05:33 RBC 3.06 L (3.65-5.03) M/mm3 Hgb 8.5 L (10.1-14.3) gm/dl Hct 26.1 L (30.3-42.9) % RDW 15.9 H (13.2-15.2) % PT 30.9 H (12.2-14.9) Sec. INR 2.95 H (0.87-1.13) Sodium 134 L (137-145) mmol/L Chloride 91.4 L (98-107) mmol/L BUN 22 H (7-17) mg/dL HEART Score - HEART Score Troponin: Troponin T 0.021 ng/mL (0.00-0.029) 10/03/20 21:03
[2020-10-05] MEDS: VANCOMYCIN 750 MG in SODIUM CHLORIDE 0.9% 250ML 250 ML IV SCH (12:31)
[2020-10-05] MEDS: CITALOPRAM 10 MG TAB PO SCH (12:32)
--- NOTE | 2020-10-05 14:25 | Progress Note ---
Assessment and Plan Bilateral lower extremity edema/cellulitis Acute on chronic CHF Leukocytosis History of ischemic cardiomyopathy History of atrial fibrillation/warfarin Hypertension GERD Hypothyroidism History of anxiety and depression Agree with gentle diuresis, monitor creatinine, potassium, and magnesium levels Agree with echocardiogram Continue oral anticoagulation with a goal INR of 2-3 Continue metoprolol 50 mg twice daily Agree with empiric antibiotics Subjective Date of service: 10/05/20 Principal diagnosis: CHF Interval history: No complaints Objective Vital Signs Temp Pulse Resp BP BP Pulse Ox 10/05/20 11:47 98.3 F 62 20 114/55 91 10/05/20 10:00 18 10/05/20 09:04 147/66 10/05/20 08:27 92 10/05/20 07:14 98.7 F 64 20 147/66 96 10/05/20 05:02 98.6 F 68 138/68 10/04/20 23:28 98.0 F 56 L 18 133/59 84 10/04/20 22:12 18 10/04/20 21:14 61 151/48 10/04/20 20:15 99 10/04/20 18:46 98.6 F 61 18 151/48 100 10/04/20 16:14 98.3 F 57 L 20 119/46 100 - Physical Examination HEENT: Positive: PERRL Neck: Positive: neck supple, trachea midline Cardiac: Positive: Irregularly Regular Lungs: Positive: Decreased Breath Sounds Neuro: Positive: Grossly Intact Abdomen: Positive: Soft, Active Bowel Sounds Skin: Positive: Other (Skin tears in her upper and lower extremities) Extremities: Present: edema, warm - Labs and Meds Coagulation 10/05/20 Range/Units 05:33 PT 30.9 H (12.2-14.9) Sec. INR 2.95 H (0.87-1.13) CBC 10/05/20 Range/Units 05:33 WBC 10.4 (4.5-11.0) K/mm3 RBC 3.06 L (3.65-5.03) M/mm3 Hgb 8.5 L (10.1-14.3) gm/dl Hct 26.1 L (30.3-42.9) % Plt Count 399 (140-440) K/mm3 Comprehensive Metabolic Panel 10/05/20 Range/Units 05:33 Sodium 134 L (137-145) mmol/L Potassium 3.7 D (3.6-5.0) mmol/L Chloride 91.4 L (98-107) mmol/L Carbon Dioxide 29 (22-30) mmol/L BUN 22 H (7-17) mg/dL Creatinine 1.0 (0.6-1.2) mg/dL Glucose 78 (65-100) mg/dL Calcium 8.5 (8.4-10.2) mg/dL
[2020-10-05] MEDS ORDERED: WARFARIN 2 MG TAB PO SCH (17:00)
[2020-10-05] MEDS: WARFARIN 1 MG TAB PO SCH (17:08)
--- NOTE | 2020-10-05 17:27 | Progress Note ---
Assessment and Plan Patient with improvement of lower extremity edema after diuretics. Improvement of the edema. Cellulitis has improved some with i.v. antibiotics. CT scan of lower extremity without significant findings. Will apply Domenic Wraps, for light c ompression to hopefully reduce edema and improve cellulitis. If this does no help with the edema, the patient may require a venogram to evaluate for deep venous obstruction. Subjective Date of service: 10/05/20 Principal diagnosis: CHF Interval history: Patient without complaints Objective - Constitutional Vitals: Vital Signs - 12hr 10/05/20 10/05/20 10/05/20 07:14 08:27 09:04 Temperature 98.7 F Pulse Rate 64 Respiratory 20 Rate Blood Pressure 147/66 147/66 O2 Sat by Pulse 96 92 Oximetry 10/05/20 10/05/20 10/05/20 10:00 11:47 15:47 Temperature 98.3 F 97.5 F L Pulse Rate 62 51 L Respiratory 18 20 20 Rate Blood Pressure 114/55 131/49 O2 Sat by Pulse 91 92 Oximetry General appearance: Present: no acute distress Extremity abnormal: edema (left leg edema significantly improved, right leg edema somewhat improved ) - Gastrointestinal General gastrointestinal: Present: soft - Labs CBC & Chem 7: 10/05/20 05:33 10/05/20 05:33 Labs: Abnormal lab results 10/05/20 10/05/20 10/05/20 Range/Units 05:33 05:33 05:33 RBC 3.06 L (3.65-5.03) M/mm3 Hgb 8.5 L (10.1-14.3) gm/dl Hct 26.1 L (30.3-42.9) % RDW 15.9 H (13.2-15.2) % PT 30.9 H (12.2-14.9) Sec. INR 2.95 H (0.87-1.13) Sodium 134 L (137-145) mmol/L Chloride 91.4 L (98-107) mmol/L BUN 22 H (7-17) mg/dL Medications & Allergies - Medications Allergies/Adverse Reactions: Allergies cephalexin [From Keflex] Allergy (Verified 10/03/20 12:38) Hives Sulfa (Sulfonamide Antibiotics) Allergy (Verified 10/03/20 12:38) Hives magnesium hydroxide [From Milk of Magnesia] Adverse Reaction (Verified 10/03/20 12:38) Unknown Active Medications: Generic Name Dose Route Start Last Admin Trade Name Freq PRN Reason Stop Dose Admin Acetaminophen 650 mg 10/05/20 17:11 Acetaminophen 325 Mg Tab PO Q6H PRN Pain, Mild (1-3) Citalopram Hydrobromide 10 mg 10/05/20 11:00 10/05/20 12:32 Citalopram 10 Mg Tab PO 10 mg QDAY [facility] Administration Famotidine 20 mg 10/04/20 11:00 10/05/20 09:04 Famotidine 20 Mg Tab PO 20 mg BID [facility] Administration Furosemide 40 mg 10/04/20 10:00 10/05/20 09:05 Furosemide 40 Mg/4 Ml Inj IV 40 mg QDAY [facility] Administration Hydralazine HCl 10 mg 10/03/20 22:31 Hydralazine 20 Mg/1 Ml Inj IV Q6H PRN htn Vancomycin HCl 750 mg/ Sodium 265 mls @ 176.667 mls/hr 10/05/20 11:00 1 12:31 Chloride IV 176.667 mls/hr Q24H [facility] Administration Levofloxacin 750 mg 10/04/20 10:00 10/04/20 09:34 Levofloxacin 750 Mg Tab PO 750 mg Q48HR [facility] Administration Protocol Levothyroxine Sodium 75 mcg 10/05/20 06:00 10/05/20 04:59 Levothyroxine 75 Mcg Tab PO 75 mcg DAILY@0600 [facility] Administration Metoprolol Tartrate 50 mg 10/04/20 11:00 10/05/20 09:04 Metoprolol Tartrate 50 Mg Tab PO 50 mg BID [facility] Administration Nitroglycerin 0.4 mg 10/03/20 22:29 Nitroglycerin 0.4 Mg Tab Subl SL .Q5MIN PRN Chest Pain Pantoprazole Sodium 40 mg 10/04/20 07:30 10/05/20 09:04 Pantoprazole 40 Mg Tab PO 40 mg QDAC [facility] Administration Potassium Chloride 10 meq 10/05/20 10:00 10/05/20 09:08 Potassium Chloride Er 10 Meq Tab PO 10 meq QDAY [facility] Administration Trazodone HCl 50 mg 10/04/20 22:00 10/04/20 21:14 Trazodone 50 Mg Tab PO 50 mg QHS [facility] Administration Warfarin Sodium 0.5 mg 10/05/20 17:00 10/05/20 17:08 Warfarin 1 Mg Tab PO 0.5 mg DAILY@1700 [facility] Administration HEART Score - HEART Score Troponin: Troponin T 0.021 ng/mL (0.00-0.029) 10/03/20 21:03
[2020-10-05] MEDS: ACETAMINOPHEN 325 MG TAB PO PRN (18:48)
[2020-10-05] MEDS: traZODone 50 MG TAB PO SCH ×2 (20:33→23:39)
[2020-10-06] MEDS: LEVOTHYROXINE 75 MCG TAB PO SCH (06:46)
[2020-10-06] MEDS: PANTOPRAZOLE 40 MG TAB PO SCH (07:30)
[2020-10-06 07:59] LABS: Calcium 8.4 mg/dL (8.4-10.2)
[2020-10-06 08:00] LABS: INR 2.88 (0.87-1.13)
[2020-10-06] MEDS: FAMOTIDINE 20 MG TAB PO SCH (09:37)
[2020-10-06] MEDS: METOPROLOL TARTRATE 50 MG TAB PO SCH ×2 (09:37→22:29)
[2020-10-06] MEDS: POTASSIUM CHLORIDE ER 10 MEQ TAB PO SCH (09:37)
[2020-10-06] MEDS: CITALOPRAM 10 MG TAB PO SCH (09:38)
[2020-10-06] MEDS: FUROSEMIDE 40 MG/4 ML INJ IV SCH (09:38)
[2020-10-06] MEDS: levoFLOXacin 750 MG TAB PO SCH (09:38)
--- NOTE | 2020-10-06 11:44 | Consultation ---
History of Present Illness - Reason for Consult Consult date: 10/06/20 cellulitis Requesting physician: MASON ALBARRAN - History of Present Illness The patient is a 80-year-old female with CHF, hypertension, gastroesophageal reflux disease, COPD, gout, assisted resident was admitted due to worsening bilateral lower extremity swelling and superficial wounds. Upon evaluation in the ER, noted to have cellulitis with leukocytosis as well as fluid overload. She was started on diuretics and empiric antibiotics. Infectious diseases was consulted for additional evaluation. No fever. WBC has improved. Bilateral lower extremities with slight improvement. Review of Systems: General: no fevers,chills or rigors HEENT: no new visual disturbance Respiratory: No cough, sputum, hemoptysis or shortness of breath Cardiovascular: No chest pain, syncope Gastrointestinal: No nausea, vomiting or diarrhea Genitourinary: No dysuria or hematuria Musculoskeletal: No new or worsening neck pain or back pain Neurologic: No headaches, seizures Hematologic: No easy bruising or bleeding Endocrine: No night sweats or acute weight loss Skin: negative for rash, jaundice Psychiatric: No suicidal or homicidal ideation Past History Past Medical History: COPD, GERD, heart failure, hypertension, other (Kidney stones, psych problem, COPD and gout) Past Surgical History: No surgical history Social history: no significant social history Family history: no significant family history Medications and Allergies Allergies Allergy/AdvReac Type Severity Reaction Status Date / Time cephalexin [From Keflex] Allergy Hives Verified 10/03/20 12:38 Sulfa (Sulfonamide Allergy Hives Verified 10/03/20 12:38 Antibiotics) magnesium hydroxide AdvReac Unknown Verified 10/03/20 12:38 [From Milk of Magnesia] Active Meds: Active Medications Acetaminophen (Acetaminophen 325 Mg Tab) 650 mg PO Q6H PRN PRN Reason: Pain, Mild (1-3) Last Admin: 10/05/20 18:48 Dose: 650 mg Documented by: Citalopram Hydrobromide (Citalopram 10 Mg Tab) 10 mg PO QDAY [facility] Last Admin: 10/06/20 09:38 Dose: 10 mg Documented by: Famotidine (Famotidine 20 Mg Tab) 20 mg PO DAILY [facility] Furosemide (Furosemide 40 Mg/4 Ml Inj) 40 mg IV QDAY [facility] Last Admin: 10/06/20 09:38 Dose: 40 mg Documented by: Hydralazine HCl (Hydralazine 20 Mg/1 Ml Inj) 10 mg IV Q6H PRN PRN Reason: SBP >/=160; DBP >/=100 Vancomycin HCl 750 mg/ Sodium (Chloride) 265 mls @ 176.667 mls/hr IV Q24H [facility] Last Admin: 10/05/20 12:31 Dose: 176.667 mls/hr Documented by: Levofloxacin (Levofloxacin 750 Mg Tab) 750 mg PO Q48HR [facility]; Protocol Last Admin: 10/06/20 09:38 Dose: 750 mg Documented by: Levothyroxine Sodium (Levothyroxine 75 Mcg Tab) 75 mcg PO DAILY@0600 [facility] Last Admin: 10/06/20 06:46 Dose: 75 mcg Documented by: Metoprolol Tartrate (Metoprolol Tartrate 50 Mg Tab) 50 mg PO BID [facility] Last Admin: 10/06/20 09:37 Dose: 50 mg Documented by: Nitroglycerin (Nitroglycerin 0.4 Mg Tab Subl) 0.4 mg SL .Q5MIN PRN PRN Reason: Chest Pain Pantoprazole Sodium (Pantoprazole 40 Mg Tab) 40 mg PO QDAC [facility] Last Admin: 10/06/20 07:30 Dose: 40 mg Documented by: Potassium Chloride (Potassium Chloride Er 10 Meq Tab) 10 meq PO QDAY [facility] Last Admin: 10/06/20 09:37 Dose: 10 meq Documented by: Trazodone HCl (Trazodone 50 Mg Tab) 50 mg PO QHS [facility] Last Admin: 10/05/20 23:39 Dose: Not Given Documented by: Warfarin Sodium (Warfarin 1 Mg Tab) 0.5 mg PO DAILY@1700 [facility] Last Admin: 10/05/20 17:08 Dose: 0.5 mg Documented by: Physical Examination - Physical Exam Narrative exam: Physical Exam: Constitutional: Alert, cooperative. No acute distress Head, Ears, Nose: Normocephalic, atraumatic. External ears, nose normal Eyes: Conjunctivae/corneas clear. No icterus. No ptosis. Neck: Supple, no meningeal signs Oral: Edentulous, no thrush Cardiovascular: S1, S2 normal. Respiratory: Good air entry, clear to auscultation bilaterally GI: Soft, non-tender; bowel sounds normal. No peritoneal signs Musculoskeletal: Bilateral LE with significant pedal edema, fragile skin, superficial wounds Skin: No rash or abscess Hem/Lymphatic: No palpable cervical or supraclavicular nodes. No lymphangitis Psych: Mood ok. Affect normal Neurological: Awake, alert, oriented. No gross abnormality - Constitutional Vitals: Vital Signs Temp Pulse Resp BP Pulse Ox 98.9 F 59 L 21 149/51 83 L 10/06/20 04:33 10/06/20 10:00 10/06/20 10:00 10/06/20 09:37 10/06/20 04:33 Temperature -Last 24 Hours Temperature 98.9 F Temperature 97.6 F Temperature 98.0 F Temperature 97.5 F Temperature 98.3 F Results - Labs CBC & Chem 7: 10/05/20 05:33 10/06/20 07:12 Labs: Abnormal lab results 10/06/20 10/06/20 Range/Units 07:12 07:12 PT 30.3 H (12.2-14.9) Sec. INR 2.88 H (0.87-1.13) Sodium 133 L (137-145) mmol/L Chloride 92.7 L (98-107) mmol/L Carbon Dioxide 32 H (22-30) mmol/L BUN 21 H (7-17) mg/dL - Imaging and Cardiology Chest x-ray: report reviewed, image reviewed (no pneumonia) Assessment and Plan Cultures: None this admission A/P: 80-year-old female with CHF, hypertension, gastroesophageal reflux disease, COPD, gout, assisted resident was admitted due to worsening bilateral lower extremity swelling and superficial wounds: #Right lower extremity cellulitis, fluid overload, superficial wounds: Improving with antibiotics and diuretics. CT chest showed cellulitis in RLE, no abscess #History of anxiety, depression: On citalopram. Prevents use of linezolid. #Keflex and sulfa drugs allergy: Patient reports every time she takes Keflex, sh e has to take Benadryl. #Atrial fibrillation: On warfarin Recs: -Discontinued levofloxacin. Interacts with INR/warfarin. -Continue IV vancomycin for 1-2 more days. Upon discharge, will do oral doxycycline. Patient is not a candidate for linezolid due to citalopram use -continue diuretics, edema control, compression, wound care Emma Cancino MD, FACP [facility] O: [phone] F: [phone]
[2020-10-06] MEDS: ACETAMINOPHEN 325 MG TAB PO PRN (11:51)
[2020-10-06] MEDS: VANCOMYCIN 750 MG in SODIUM CHLORIDE 0.9% 250ML 250 ML IV SCH (11:53)
--- NOTE | 2020-10-06 12:01 | Progress Note ---
Assessment and Plan Continue IV diuresis with strict I/Os. Closely monitor renal indices and electrolytes. Continue Lopressor 50mg BID as tolerated. Continue Coumadin for target INR 2.0-3.0. Pt seen in conjunction with Dr. Grewal, who agrees with the assessment and plan of care. - Patient Problems (1) COPD (chronic obstructive pulmonary disease) Current Visit: Yes Status: Chronic (2) Acute on chronic heart failure with preserved ejection fraction (HFpEF) Current Visit: Yes Status: Acute (3) Cellulitis of right leg Current Visit: Yes Status: Acute (4) Hyponatremia Current Visit: Yes Status: Acute (5) Anemia Current Visit: Yes Status: Acute (6) Atrial fibrillation Current Visit: Yes Status: Chronic Qualifiers: Atrial fibrillation type: unspecified chronic Qualified Code(s): I48.20 - Chronic atrial fibrillation, unspecified; I48.2 - Chronic atrial fibrillation (7) Hypothyroidism Current Visit: Yes Status: Chronic (8) CAD (coronary artery disease) Current Visit: Yes Status: Chronic Qualifiers: [place] vs. transplanted heart: [place] heart Associated angina: without angina (9) Hx of CABG Current Visit: Yes Status: Chronic (10) Hypertension Current Visit: Yes Status: Chronic Qualifiers: Hypertension type: essential hypertension Qualified Code(s): I10 - Essential (primary) hypertension (11) HLD (hyperlipidemia) Current Visit: Yes Status: Chronic Qualifiers: Hyperlipidemia type: mixed hyperlipidemia Qualified Code(s): E78.2 - Mixed hyperlipidemia (12) Statin intolerance Current Visit: Yes Status: Chronic (13) GERD (gastroesophageal reflux disease) Current Visit: Yes Status: Chronic (14) Gout Current Visit: Yes Status: Chronic Subjective Date of service: 10/06/20 Principal diagnosis: A/C HFpEF, RLE Cellulitis, AF Interval history: Resting comfortably upon exam. States she is still having trouble breathing, but edema is improving. No new complaints. Tele reviewed - AFlutter 60s (down to 40s overnight), no events. Objective Last Vital Signs Temp 98.9 F 10/06/20 04:33 Pulse 59 L 10/06/20 10:00 Resp 21 10/06/20 10:00 BP 149/51 10/06/20 09:37 Pulse Ox 83 L 10/06/20 04:33 - Physical Examination General: No Apparent Distress HEENT: Positive: EOMI, Normocephaly, Mucus Membranes Moist Neck: Positive: neck supple, trachea midline. Negative: JVD/HJR Cardiac: Positive: Irregularly Regular, S1/S2 Lungs: Positive: Decreased Breath Sounds (bases) Neuro: Positive: Grossly Intact Abdomen: Positive: Soft. Negative: Tender Skin: Positive: Other (RLE bandage in place) Extremities: Present: edema, warm - Labs and Meds Coagulation 10/06/20 Range/Units 07:12 PT 30.3 H (12.2-14.9) Sec. INR 2.88 H (0.87-1.13) Comprehensive Metabolic Panel 10/06/20 Range/Units 07:12 Sodium 133 L (137-145) mmol/L Potassium 4.0 (3.6-5.0) mmol/L Chloride 92.7 L (98-107) mmol/L Carbon Dioxide 32 H (22-30) mmol/L BUN 21 H (7-17) mg/dL Creatinine 1.1 (0.6-1.2) mg/dL Glucose 97 (65-100) mg/dL Calcium 8.4 (8.4-10.2) mg/dL - Imaging and Cardiology EKG: report reviewed, image reviewed Pharmacologic stress test: report reviewed (10/2016 - no evidence of significant ischemia, EF 50-70%) Echo: report reviewed (10/03/2020 - mild concentric LVH, borderline low LV sys fxn, EF 50%, transmitral Doppler flow pattern suggestive of restrictive physiology, RV mildly dilated, LA mildly dilated, RA mildly dilated, mild TR, RVSP 28mmHg) Cardiac cath: report reviewed (2005 normal LV fxn, LAD 100% mid w/patent vein graft to mid LAD, VALENCIA occluded to diag, Cfx 70% prox and 100% obtuse marginal w/patent vein graft, RCA 100% w/patent but stenotic vein graft) - Telemetry EKG Rhythm: Atrial Flutter - EKG Supraventricular dysrhythmia: atrial fibrillation AV and intraventricular conduction: right bundle branch block
--- NOTE | 2020-10-06 13:06 | Progress Note ---
Subjective Date of service: 10/06/20 Principal diagnosis: A/C HFpEF, RLE Cellulitis, AF Interval history: History of present illness: 80-year-old female with past medical history of hypertension, congestive heart failure, GERD kidney stone COPD and gout was brought from her [facility] due to significant lower extremity swelling over the past 2 weeks. The right lower extremity has been more swollen than the left. The patient states that she was put on antibiotics but it did not improve swelling. Other than the swelling in her legs which are causing her pain, she denies any associated chest pain, shortness of breath, cough, abdominal pain, fever/chills, syncope, weakness, or any other complaints. In the emergency room patient is found to have volume overloaded/CHF exacerbation and proBNP is 3816, troponin 0 0.021. Also patient has bilateral lower extremity cellulitis, WBCs 12.6 10/04 patient is alert and oriented and not in any distress. She offers no specific complaints except some pain in the legs right more than left She denies any fever or chills. Denies chest pain or shortness of breath. Lab results reviewed 10/05 patient is alert and oriented and not in any distress. She offers no specific complaints. Denies chest pain or shortness of breath. Denies fever or chills. Cardiology and vascular notes reviewed. Lab results reviewed. 10/06 patient is alert and oriented and offers no specific complaints. CT of the lower extremity results reviewed. ID note reviewed A/P: Bilateral leg edema/erythema-improving Likely cellulitis right lower extremity more than left Rule out venous insufficiency Patient was treated with clindamycin p.o. at the nursing facility without any improvement in the erythema Since then it only got worse and now has some hemorrhagic blisters Continue vancomycin Levaquin discontinued Patient is allergic to multiple antibiotics including doxycycline, cephalexin and sulfonamides Recent arterial Doppler showed no evidence of PAD Vascular note reviewed and appreciated CT of the lower extremity results reviewed Left leg edema significantly improved Continue gentle diuresis History of ischemic cardiomyopathy Check echocardiogram Chest x-ray reviewed No evidence of pulmonary edema P BNP results reviewed Cardiology consulted and note reviewed Continue IV Lasix Patient has a negative fluid balance of 1935 mL in the past 24 hours Will start on daily potassium supplement of 10 mEq as the serum potassium is trending down secondary to IV Lasix Continue beta-héctor Telemetry Fluid restriction Monitor I's and O's History of atrial fibrillation on warfarin INR is in the therapeutic range Continue warfarin at 2 mg Monitor daily INR Hypertension Fair History of GERD Continue Pepcid History of anxiety/depression continue citalopram and trazodone Hypothyroidism Continue Synthroid Objective - Constitutional Vitals: Vital Signs - 12hr 10/06/20 10/06/20 10/06/20 04:33 08:00 08:16 Temperature 98.9 F 97.5 F L Pulse Rate 59 L 55 L 64 Pulse Rate [ Left Dorsalis Pedis] Pulse Rate [ Right Posterior Tibial] Respiratory 18 18 Rate Blood Pressure 149/51 133/52 O2 Sat by Pulse 83 L 96 Oximetry 10/06/20 10/06/20 10/06/20 09:37 10:00 11:34 Temperature 98.4 F Pulse Rate 90 56 L Pulse Rate [ 59 L Left Dorsalis Pedis] Pulse Rate [ 59 L Right Posterior Tibial] Respiratory 21 18 Rate Blood Pressure 149/51 138/42 O2 Sat by Pulse 100 Oximetry General appearance: Present: no acute distress - EENT Eyes: PERRL, EOM intact ENT: hearing intact - Neck Neck: supple, normal ROM - Respiratory Respiratory effort: normal Respiratory: bilateral: CTA - Cardiovascular Rhythm: regular Heart Sounds: Present: S1 & S2 Extremity abnormal: edema, erythema (Erythema in the right lower extremity extending into the distal thigh, medially and laterally with pitting edema) - Gastrointestinal General gastrointestinal: Present: soft, non-tender Rectal Exam: deferred - Genitourinary Female genitourinary: deferred - Integumentary Integumentary: erythema - Musculoskeletal Musculoskeletal: generalized weakness - Neurologic Neurologic: no focal deficits, moves all extremities - Psychiatric Psychiatric: appropriate mood/affect - Labs CBC & Chem 7: 10/05/20 05:33 10/06/20 07:12 Labs: Abnormal lab results 10/06/20 10/06/20 Range/Units 07:12 07:12 PT 30.3 H (12.2-14.9) Sec. INR 2.88 H (0.87-1.13) Sodium 133 L (137-145) mmol/L Chloride 92.7 L (98-107) mmol/L Carbon Dioxide 32 H (22-30) mmol/L BUN 21 H (7-17) mg/dL HEART Score - HEART Score Troponin: Troponin T 0.021 ng/mL (0.00-0.029) 10/03/20 21:03
--- NOTE | 2020-10-06 16:10 | Progress Note ---
Assessment and Plan 80-year-old female with severe lower extremity edema, right side worse than left. Likely multifactorial, with elements of CHF, trauma, and cellulitis. No DVT. Agree with Dr. Glynn thought of CT of abdomen and pelvis. Ordered CT scan. Patient had Domenic wrap's on the right lower extremity. Had these removed and applied ERIC hose to the right lower extremity. Swelling has improved. Positioned legs in an elevated position to assist with drainage. We will reassess. Subjective Date of service: 10/06/20 Principal diagnosis: A/C HFpEF, RLE Cellulitis, AF Interval history: Edema has improved. Domenic wraps on right leg. Patient has palpable dorsalis pedis and left posterior tibial pulse. Right PT cannot be palpated due to extensive edema. Has many bruises on her skin due to trauma. Objective - Constitutional Vitals: Vital Signs - 12hr 10/06/20 10/06/20 10/06/20 04:33 08:00 08:16 Temperature 98.9 F 97.5 F L Pulse Rate 59 L 55 L 64 Pulse Rate [ Left Dorsalis Pedis] Pulse Rate [ Right Posterior Tibial] Respiratory 18 18 Rate Blood Pressure 149/51 133/52 O2 Sat by Pulse 83 L 96 Oximetry 10/06/20 10/06/20 10/06/20 09:37 10:00 11:34 Temperature 98.4 F Pulse Rate 90 56 L Pulse Rate [ 59 L Left Dorsalis Pedis] Pulse Rate [ 59 L Right Posterior Tibial] Respiratory 21 18 Rate Blood Pressure 149/51 138/42 O2 Sat by Pulse 100 100 Oximetry General appearance: Present: no acute distress - EENT Eyes: EOM intact ENT: hearing intact - Respiratory Respiratory effort: normal Extremities: abnormal (See subjective) - Psychiatric Psychiatric: appropriate mood/affect, cooperative - Labs CBC & Chem 7: 10/05/20 05:33 10/06/20 07:12 Labs: Abnormal lab results 10/06/20 10/06/20 Range/Units 07:12 07:12 PT 30.3 H (12.2-14.9) Sec. INR 2.88 H (0.87-1.13) Sodium 133 L (137-145) mmol/L Chloride 92.7 L (98-107) mmol/L Carbon Dioxide 32 H (22-30) mmol/L BUN 21 H (7-17) mg/dL Medications & Allergies - Medications Allergies/Adverse Reactions: Allergies cephalexin [From Keflex] Allergy (Verified 10/03/20 12:38) Hives Sulfa (Sulfonamide Antibiotics) Allergy (Verified 10/03/20 12:38) Hives magnesium hydroxide [From Milk of Magnesia] Adverse Reaction (Verified 10/03/20 12:38) Unknown Active Medications: Generic Name Dose Route Start Last Admin Trade Name Freq PRN Reason Stop Dose Admin Acetaminophen 650 mg 10/05/20 17:11 10/06/20 11:51 Acetaminophen 325 Mg Tab PO 650 mg Q6H PRN Administration Pain, Mild (1-3) Citalopram Hydrobromide 10 mg 10/05/20 11:00 10/06/20 09:38 Citalopram 10 Mg Tab PO 10 mg QDAY [facility] Administration Famotidine 20 mg 10/07/20 10:00 Famotidine 20 Mg Tab PO DAILY [facility] Furosemide 40 mg 10/04/20 10:00 10/06/20 09:38 Furosemide 40 Mg/4 Ml Inj IV 40 mg QDAY [facility] Administration Hydralazine HCl 10 mg 10/03/20 22:31 Hydralazine 20 Mg/1 Ml Inj IV Q6H PRN SBP >/=160; DBP >/=100 Vancomycin HCl 750 mg/ Sodium 265 mls @ 176.667 mls/hr 10/05/20 11:00 10/06/20 11:53 Chloride IV 176.667 mls/hr Q24H [facility] Administration Levothyroxine Sodium 75 mcg 10/05/20 06:00 10/06/20 06:46 Levothyroxine 75 Mcg Tab PO 75 mcg DAILY@0600 [facility] Administration Metoprolol Tartrate 50 mg 10/04/20 11:00 10/06/20 09:37 Metoprolol Tartrate 50 Mg Tab PO 50 mg BID [facility] Administration Nitroglycerin 0.4 mg 10/03/20 22:29 Nitroglycerin 0.4 Mg Tab Subl SL .Q5MIN PRN Chest Pain Pantoprazole Sodium 40 mg 10/04/20 07:30 10/06/20 07:30 Pantoprazole 40 Mg Tab PO 40 mg QDAC [facility] Administration Potassium Chloride 10 meq 10/05/20 10:00 10/06/20 09:37 Potassium Chloride Er 10 Meq Tab PO 10 meq QDAY [facility] Administration Trazodone HCl 50 mg 10/04/20 22:00 10/05/20 23:39 Trazodone 50 Mg Tab PO Not Given QHS [facility] Warfarin Sodium 0.5 mg 10/05/20 17:00 10/05/20 17:08 Warfarin 1 Mg Tab PO 0.5 mg DAILY@1700 [facility] Administration HEART Score - HEART Score Troponin: Troponin T 0.021 ng/mL (0.00-0.029) 10/03/20 21:03
[2020-10-06] MEDS: WARFARIN 1 MG TAB PO SCH (17:38)
--- NOTE | 2020-10-06 21:38 | Cat Scan Report ---
CT ABDOMEN AND PELVIS WITH CONTRAST INDICATION / CLINICAL INFORMATION: Severe right leg swelling. Evaluate for possible obstructive etiology. TECHNIQUE: Axial CT images were obtained through the abdomen and pelvis after 100 cc Omnipaque [address] scans at this location are performed using CT dose reduction for ALARA by means of automated exposure control. COMPARISON: CT right lower extremity with contrast from 10/04/2020. FINDINGS: LOWER CHEST: There is mild bibasilar atelectasis. The thoracic aorta is ectatic with the distal desce nding portion measuring up to 3.7 cm in transverse dimension. There is diffuse thoracic aortic athero sclerosis and moderate coronary atherosclerosis. The heart is moderately enlarged without identificat ion of a significant pericardial effusion or other acute abnormality. LIVER: No significant abnormality. GALLBLADDER: Not visualized and likely surgically absent. BILE DUCTS: No significant abnormality. PANCREAS: No significant abnormality. SPLEEN: No significant abnormality. ADRENALS: No significant abnormality. RIGHT KIDNEY / URETER: A simple cyst located along the lower pole of the right kidney measures up to 9 mm. No other significant abnormality. LEFT KIDNEY / URETER: The left kidney is severely atrophic without identification of acute abnormalit ies. STOMACH / SMALL BOWEL: No significant abnormality of the stomach. The third portion of the duodenum i s mildly thickened and hyperemic and abnormally abuts the anterior margin of the abdominal aorta on i mage 72 of series 2 without clear separation between that portion of the bowel and the aorta. Additio susie, there is gas seen within the wall of the abdominal aorta at that level. No other significant a bnormality of the small bowel. COLON: No significant abnormality. APPENDIX: Not well-visualized. PERITONEUM: No free fluid. No free air. No fluid collection. LYMPH NODES: No significant adenopathy. AORTA / ARTERIES: There has been prior bilateral aortoiliac bypass. Suspicious thickening and increas ed attenuation of the wall of the abdominal aorta is noted with soft tissue gas seen anteriorly along the infrarenal portion as noted above and along the proximal third of the right limb of the bypass. There is a suspected abscess at the origin of the right limb of the bypass measuring 4.2 x 1.8 cm on image 58 of series 601. No other acute vascular abnormality is seen. Severe generalized atheroscleros is is noted. IVC / VEINS: No significant abnormality. URINARY BLADDER: No significant abnormality. REPRODUCTIVE ORGANS: Uterus is absent. No significant adnexal abnormality. ADDITIONAL FINDINGS: Moderate edema is again seen along the proximal right lower extremity. SKELETAL SYSTEM: The bones are demineralized. Moderate degenerative changes are seen along the spine and pelvis without an acute abnormality. IMPRESSION: 1. Suspected infection of a previously placed aortoiliac bypass graft with a suspected abscess and qu estionable evolving aortoenteric fistula as detailed above. 2. Additional findings as above. CRITICAL RESULT: Time of Discovery ([employer] ARCHITECT/CDT): 20:15 Time of Communication ([employer]CHITECT/CDT): 20:30 Licensed Practitioner Receiving Report: nurse Aida on the 4A unit Read-Back Performed: Yes. Signer Name: Edwin Smith MD Signed: 10/06/2020 9:33 PM Workstation Name: [id number]
[2020-10-06] MEDS: traZODone 50 MG TAB PO SCH (22:30)
[2020-10-07] MEDS: LEVOTHYROXINE 75 MCG TAB PO SCH (05:29)
--- NOTE | 2020-10-07 10:05 | Electrocardiograph Report ---
[facility] Test Date: 2020-10-03 Test Time: 22:44:31 Pat Name: TEQUILA ASHER Department: Room: A475 1 Gender: F Internet Consultant: Javed BELL : 1940 Requested By: MARITZA FLORES Order Number: [id number] Reading MD: Nir Grewal Measurements Intervals [place] Rate: 61 P: RI: QRS: 25 QRSD: 162 T: -39 QT: 514 QTc: 520 Interpretive Statements Atrial fibrillation Right bundle branch block No previous ECG available for comparison Electronically Signed On 10-07-2020 10:05:27 EDT by Nir Grewal
--- NOTE | 2020-10-07 10:11 | Progress Note ---
Assessment and Plan Continue IV diuresis with strict I/Os. Closely monitor renal indices and electrolytes. Will decrease Lopressor to 25mg BID as tolerated given SVR. TSH noted to be elevated. Will defer to Primary for adjustment of Synthroid dosage if warranted. Continue Coumadin for target INR 2.0-3.0. Pt seen in conjunction with Dr. Grewal, who agrees with the assessment and plan of care. - Patient Problems (1) COPD (chronic obstructive pulmonary disease) Current Visit: Yes Status: Chronic (2) Acute on chronic heart failure with preserved ejection fraction (HFpEF) Current Visit: Yes Status: Acute (3) Cellulitis of right leg Current Visit: Yes Status: Acute (4) Hyponatremia Current Visit: Yes Status: Acute (5) Anemia Current Visit: Yes Status: Acute (6) Atrial fibrillation Current Visit: Yes Status: Chronic Qualifiers: Atrial fibrillation type: unspecified chronic Qualified Code(s): I48.20 - Chronic atrial fibrillation, unspecified; I48.2 - Chronic atrial fibrillation (7) Hypothyroidism Current Visit: Yes Status: Chronic (8) CAD (coronary artery disease) Current Visit: Yes Status: Chronic Qualifiers: [place] vs. transplanted heart: [place] heart Associated angina: without angina (9) Hx of CABG Current Visit: Yes Status: Chronic (10) Hypertension Current Visit: Yes Status: Chronic Qualifiers: Hypertension type: essential hypertension Qualified Code(s): I10 - Essential (primary) hypertension (11) HLD (hyperlipidemia) Current Visit: Yes Status: Chronic Qualifiers: Hyperlipidemia type: mixed hyperlipidemia Qualified Code(s): E78.2 - Mixed hyperlipidemia (12) Statin intolerance Current Visit: Yes Status: Chronic (13) GERD (gastroesophageal reflux disease) Current Visit: Yes Status: Chronic (14) Gout Current Visit: Yes Status: Chronic Subjective Date of service: 10/07/20 Principal diagnosis: A/C HFpEF, RLE Cellulitis, AF Interval history: C/o severe pain in RLE from ERIC megane. No additional complaints. Edema continues to improve. Denies SOB. Tele reviewed - AFlutter 40-60s, short run of PAT noted overnight, otherwise no events. Objective Last Vital Signs Temp 97.8 F 10/07/20 08:11 Pulse 49 L 10/07/20 08:11 Resp 18 10/07/20 08:11 BP 136/45 10/07/20 08:11 Pulse Ox 96 10/07/20 08:11 - Physical Examination General: No Apparent Distress HEENT: Positive: EOMI, Normocephaly, Mucus Membranes Moist Neck: Positive: neck supple, trachea midline. Negative: JVD/HJR Cardiac: Positive: Irregularly Regular, S1/S2 Lungs: Positive: Decreased Breath Sounds (bilaterally) Neuro: Positive: Grossly Intact Abdomen: Positive: Soft. Negative: Tender Skin: Positive: Other (ERIC hose on RLE) Extremities: Present: edema (RLE > LLE), warm - Imaging and Cardiology EKG: report reviewed, image reviewed Echo: report reviewed (10/03/2020 - mild concentric LVH, borderline low LV sys fxn, EF 50%, transmitral Doppler flow pattern suggestive of restrictive physiology, RV mildly dilated, LA mildly dilated, RA mildly dilated, mild TR, RVSP 28mmHg) Cardiac cath: report reviewed (2005 normal LV fxn, LAD 100% mid w/patent vein graft to mid LAD, VALENCIA occluded to diag, Cfx 70% prox and 100% obtuse marginal w/patent vein graft, RCA 100% w/patent but stenotic vein graft) - Telemetry EKG Rhythm: Atrial Flutter - EKG Supraventricular dysrhythmia: atrial fibrillation AV and intraventricular conduction: right bundle branch block
[2020-10-07] MEDS: FAMOTIDINE 20 MG TAB PO SCH (10:35)
[2020-10-07] MEDS: POTASSIUM CHLORIDE ER 10 MEQ TAB PO SCH (10:36)
[2020-10-07] MEDS: CITALOPRAM 10 MG TAB PO SCH (10:36)
[2020-10-07] MEDS: PANTOPRAZOLE 40 MG TAB PO SCH (10:39)
[2020-10-07] MEDS: METOPROLOL TARTRATE 50 MG TAB PO SCH ×3 (10:43→22:14)
[2020-10-07] MEDS: FUROSEMIDE 40 MG/4 ML INJ IV SCH (10:43)
[2020-10-07] MEDS: VANCOMYCIN 750 MG in SODIUM CHLORIDE 0.9% 250ML 250 ML IV SCH (10:46)
[2020-10-07 11:07] LABS: INR 2.28 (0.87-1.13)
[2020-10-07 11:10] LABS: Calcium 8.4 mg/dL (8.4-10.2)
--- NOTE | 2020-10-07 13:25 | Vascular Lab Report ---
DUPLEX DOPPLER LOWER EXTREMITY ARTERIAL, BILATERAL INDICATION / CLINICAL INFORMATION: Bilateral wounds. TECHNIQUE: Arterial duplex examination of both lower extremities performed using B-mode, color flow a nd spectral Doppler assessment. FINDINGS: RIGHT: Common Femoral Artery: PSV 165 cm/sec. Monophasic waveform. Proximal SFA: PSV 219 cm/sec. Monophasic waveform. Mid SFA: PSV 208 cm/sec. Monophasic waveform. Distal SFA: PSV 84 cm/sec. No waveform. Popliteal artery: PSV 95 cm/sec. Monophasic waveform. Posterior tibial artery: PSV 69 cm/sec. Monophasic waveform. Dorsalis Pedis Artery: PSV 74 cm/sec. Monophasic waveform. LEFT: Common Femoral Artery: PSV 151 cm/sec. Biphasic waveform. Proximal SFA: PSV 136 cm/sec. Biphasic waveform. Mid SFA: PSV 146 cm/sec. Biphasic waveform. Distal SFA: PSV 105 cm/sec. Biphasic waveform. Popliteal artery: PSV 61 cm/sec. Biphasic waveform. Posterior tibial artery: PSV 41 cm/sec. Biphasic waveform. Dorsalis Pedis Artery: PSV 41 cm/sec. Biphasic waveform. Right JAYLENE: Not performed. Left JAYLENE: Not performed. IMPRESSION: 1. Abnormal monophasic waveforms visualized throughout the right lower extremity suggesting moderate to severe inflow disease. 2. Moderate atherosclerotic disease is present bilaterally. Ankle-Brachial Index (JAYLENE): - Calcified arteries > 1.4 - Normal = 0.9-1.4 - Mild PAD = 0.7-0.89 - Moderate PAD = 0.51-0.69 - Severe PAD < 0.5 Doppler Waveform: - Triphasic is normal. - Biphasic is abnormal if clear transition from triphasic signal along vascular tree. - Monophasic is abnormal. Scribed by: Awilda Jones RDMS, RVT Scribed: 10/07/2020 11:21 AM Signer Name: Ken Ramos MD Signed: 10/07/2020 1:20 PM Workstation Name: [id number]
[2020-10-07] MEDS: ONDANSETRON 4 MG/2 ML INJ IV PRN (13:51)
--- NOTE | 2020-10-07 14:05 | Progress Note ---
Assessment and Plan Cultures: None this admission A/P: 80-year-old female with CHF, hypertension, gastroesophageal reflux disease, COPD, gout, peripheral vascular disease, [facility] resident was admitted due to worsening bilateral lower extremity swelling and superficial wounds: #Right lower extremity cellulitis, fluid overload, superficial wounds: Improving with antibiotics and diuretics. CT chest showed cellulitis in RLE, no abscess. 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 Vascular following. #History of anxiety, depression: On citalopram. Prevents use of linezolid. #Keflex and sulfa drugs allergy: Patient reports every time she takes Keflex, she has to take Benadryl. #Atrial fibrillation: On warfarin Recs: -Continue IV vancomycin, target trough: 10-20 mcg/ml -continue diuretics, edema control, compression, wound care -f/u vascular recs regarding possible graft infection Emma Cancino MD, FACP [facility] O: [phone] F: [phone] Subjective Date of service: 10/07/20 Principal diagnosis: A/C HFpEF, RLE Cellulitis, AF Interval history: No fever. Complains of nausea, dry heaving. R leg she feels is slowly improving. Objective - Exam Narrative Exam: Physical Exam: Constitutional: Alert, cooperative. No acute distress Head, Ears, Nose: Normocephalic, atraumatic. External ears, nose normal Eyes: Conjunctivae/corneas clear. No icterus. No ptosis. Neck: Supple, no meningeal signs Oral: Edentulous, no thrush Cardiovascular: S1, S2 normal. Respiratory: Good air entry, clear to auscultation bilaterally GI: Soft, non-tender; bowel sounds normal. No peritoneal signs Musculoskeletal: Bilateral LE with significant pedal edema, fragile skin, superficial wounds Skin: No rash or abscess Hem/Lymphatic: No palpable cervical or supraclavicular nodes. No lymphangitis Psych: Mood ok. Affect normal Neurological: Awake, alert, oriented. No gross abnormality - Constitutional Vitals: Vital Signs Temp Pulse Resp BP Pulse Ox 97.8 F 51 L 18 137/52 99 10/07/20 08:11 10/07/20 10:43 10/07/20 10:40 10/07/20 10:43 10/07/20 10:40 Temperature -Last 24 Hours Temperature 97.8 F Temperature 97.7 F Temperature 98.9 F Temperature 98.2 F Temperature 99.5 F Temperature 98.8 F - Labs CBC & Chem 7: 10/05/20 05:33 10/07/20 10:28 Labs: Abnormal lab results 10/07/20 10/07/20 10/07/20 Range/Units 10:28 10:28 10:28 PT 25.1 H (12.2-14.9) Sec. INR 2.28 H (0.87-1.13) Sodium 132 L (137-145) mmol/L Chloride 91.0 L (98-107) mmol/L Carbon Dioxide 35 H (22-30) mmol/L BUN 22 H (7-17) mg/dL Glucose 104 H (65-100) mg/dL TSH 6.790 H (0.270-4.200) mlU/mL
[2020-10-07] MEDS: ACETAMINOPHEN 325 MG TAB PO PRN (14:34)
--- NOTE | 2020-10-07 15:55 | Progress Note ---
Assessment and Plan 80-year-old female with severe lower extremity edema, right side worse than left. CT of the abdomen and pelvis demonstrated changes from thoracoabdominal aorta repair with findings of the abdominal portion of the repair concerning for unde rlying infection with aortoenteric fistula. Thankfully, patient is not having significant symptoms from this, and denies a history of longstanding fevers, longstanding severe abdominal pain, melena, or hematemesis. However, this requires tertiary care referral given the implications and needs aggressive management, if possible. Discussed this with transfer center and Dr. Gonzales agreed to accept patient. Patient is also having nausea and vomiting for the last 3 days per patient. Discussed with nurse who will obtain Zofran for patient after discussing with hospitalist. This may be related to the aortoenteric fistula. The right lower extremity edema has elements from trauma, CHF, and prior cellulitis, and may have an additional component from iliac venous compression from the tortuous arterial system and aortic collection. Patient took off the ERIC hose of her right leg which was likely too small for her. Discussed with nurse to get her a larger size. Swelling has worsened since removing the ERIC hose. Subjective Date of service: 10/07/20 Principal diagnosis: A/C HFpEF, RLE Cellulitis, AF Interval history: Edema has slightly worsened, as patient took off her ERIC hose. The ERIC hose was medium and it likely should have been a large. Had nurse get large ERIC hose. Due to swelling, cannot palpate right PT or DP. Has palpable left DP pulse. Many bruises on her lower extremities due to trauma. Objective - Constitutional Vitals: Vital Signs - 12hr 10/07/20 10/07/20 10/07/20 03:49 07:59 08:00 Temperature 97.7 F Pulse Rate 52 L 51 L Respiratory 16 Rate Blood Pressure 131/24 Blood Pressure [Left] O2 Sat by Pulse 97 93 Oximetry 10/07/20 10/07/20 10/07/20 08:11 10:40 10:43 Temperature 97.8 F Pulse Rate 49 L 51 L 51 L Respiratory 18 18 Rate Blood Pressure 136/45 137/52 Blood Pressure 137/52 [Left] O2 Sat by Pulse 96 99 Oximetry General appearance: Present: no acute distress - EENT Eyes: EOM intact ENT: hearing intact - Respiratory Respiratory effort: normal Extremities: abnormal (See subjective) - Gastrointestinal General gastrointestinal: Present: other (Actively having nausea and mild vomiting) - Psychiatric Psychiatric: appropriate mood/affect, cooperative - Labs CBC & Chem 7: 10/05/20 05:33 10/07/20 10:28 Labs: Abnormal lab results 10/07/20 10/07/20 10/07/20 Range/Units 10:28 10:28 10:28 PT 25.1 H (12.2-14.9) Sec. INR 2.28 H (0.87-1.13) Sodium 132 L (137-145) mmol/L Chloride 91.0 L (98-107) mmol/L Carbon Dioxide 35 H (22-30) mmol/L BUN 22 H (7-17) mg/dL Glucose 104 H (65-100) mg/dL TSH 6.790 H (0.270-4.200) mlU/mL Medications & Allergies - Medications Allergies/Adverse Reactions: Allergies cephalexin [From Keflex] Allergy (Verified 10/03/20 12:38) Hives Sulfa (Sulfonamide Antibiotics) Allergy (Verified 10/03/20 12:38) Hives magnesium hydroxide [From Milk of Magnesia] Adverse Reaction (Verified 10/03/20 12:38) Unknown Active Medications: Generic Name Dose Route Start Last Admin Trade Name Freq PRN Reason Stop Dose Admin Acetaminophen 650 mg 10/05/20 17:11 10/07/20 14:34 Acetaminophen 325 Mg Tab PO 650 mg Q6H PRN Administration Pain, Mild (1-3) Citalopram Hydrobromide 10 mg 10/05/20 11:00 10/07/20 10:36 Citalopram 10 Mg Tab PO 10 mg QDAY WHITNEY Administration Famotidine 20 mg 10/07/20 10:00 10/07/20 10:35 Famotidine 20 Mg Tab PO 20 mg DAILY WHITNEY Administration Furosemide 40 mg 10/04/20 10:00 10/07/20 10:43 Furosemide 40 Mg/4 Ml Inj IV 40 mg QDAY WHITNEY Administration Hydralazine HCl 10 mg 10/03/20 22:31 Hydralazine 20 Mg/1 Ml Inj IV Q6H PRN SBP >/=160; DBP >/=100 Hydralazine HCl 25 mg 10/07/20 22:00 Hydralazine 25 Mg Tab PO BID WHITNEY Vancomycin HCl 750 mg/ Sodium 265 mls @ 176.667 mls/hr 10/05/20 11:00 10/07/20 10:46 Chloride IV 176.667 mls/hr Q24H WHITNEY Administration Levothyroxine Sodium 75 mcg 10/05/20 06:00 10/07/20 05:29 Levothyroxine 75 Mcg Tab PO 75 mcg DAILY@0600 [facility] Administration Metoprolol Tartrate 25 mg 10/07/20 11:00 10/07/20 10:43 Metoprolol Tartrate 50 Mg Tab PO Not Given BID [facility] Nitroglycerin 0.4 mg 10/03/20 22:29 Nitroglycerin 0.4 Mg Tab Subl SL .Q5MIN PRN Chest Pain Ondansetron HCl 4 mg 10/07/20 13:36 10/07/20 13:51 Ondansetron 4 Mg/2 Ml Inj IV 4 mg Q8H PRN Administration N/V unrelieved by Elena Pantoprazole Sodium 40 mg 10/04/20 07:30 10/07/20 10:39 Pantoprazole 40 Mg Tab PO 40 mg QDAC [facility] Administration Potassium Chloride 10 meq 10/05/20 10:00 10/07/20 10:36 Potassium Chloride Er 10 Meq Tab PO 10 meq QDAY [facility] Administration Trazodone HCl 50 mg 10/04/20 22:00 10/06/20 22:30 Trazodone 50 Mg Tab PO 50 mg QHS [facility] Administration Warfarin Sodium 1 mg 10/07/20 17:00 Warfarin 1 Mg Tab PO DAILY@1700 [facility] HEART Score - HEART Score Troponin: Troponin T 0.021 ng/mL (0.00-0.029) 10/03/20 21:03
[2020-10-07] MEDS ORDERED: WARFARIN 1 MG TAB PO SCH (17:00)
--- NOTE | 2020-10-07 17:06 | Progress Note ---
Assessment and Plan --Bilateral leg edema/erythema-improving Likely cellulitis right lower extremity more than left Lower extremity venous Doppler was negative Likely due to underlying CHF exacerbation Recent arterial Doppler showed no evidence of PAD Left leg edema significantly improved Continue gentle diuresis --Right lower extremity cellulitis Patient was treated with clindamycin p.o. at the nursing facility without any improvement in the erythema Since then it only got worse and now has some hemorrhagic blisters Continue vancomycin Levaquin discontinued Patient is allergic to multiple antibiotics including doxycycline, cephalexin and sulfonamides Vascular note reviewed and appreciated: Recent arterial Doppler showed no evidence of PAD CT of the lower extremity results showed Moderate cellulitis right distal thigh and marked cellulitis of right calf without any sign of drainable fluid collection/abscesses vascular graft. 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 Consulted vascular surgeon and recommended to transfer the patient to [facility] for higher level of care --Acute CHF exacerbation with history of ischemic cardiomyopathy 2d echocardiogram showed preserved EF Chest x-ray reviewed No evidence of pulmonary edema P BNP results reviewed Cardiology consulted and note reviewed Placed on IV Lasix, monitor BMP Continue beta-héctor Telemetry Fluid restriction Monitor I's and O's --Atrial fibrillation on warfarin INR is in the therapeutic range Continue warfarin at 2 mg Monitor daily INR --Hypertension Fair --History of GERD Continue Pepcid --History of anxiety/depression continue citalopram and trazodone --Hypothyroidism Continue Synthroid --DVt Px Brief History: 80-year-old female with past medical history of hypertension, congestive heart failure, GERD, kidney stone, COPD and gout was brought from her longterm due to significant lower extremity swelling over the past 2 weeks. The right lower extremity has been more swollen than the left. The patient states that she was put on antibiotics but it did not improve swelling. Other than the swelling in her legs which are causing her pain, she denies any associated chest pain, shor tness of breath, cough, abdominal pain, fever/chills, syncope, weakness, or any other complaints. In the emergency room patient was found to have volume overloaded/CHF exacerbation and proBNP is 3816, troponin 0 0.021. Also patient has bilateral lower extremity cellulitis, WBCs 12.6. Patient was admitted for further evaluation management, cardiology was consulted. Daily clinical course: 10/04 patient is alert and oriented and not in any distress. She offers no speci fic complaints except some pain in the legs right more than left. She denies any fever or chills. Denies chest pain or shortness of breath. Lab results reviewed. Patient being diuresed and placed on IV antibiotics. 2D echo showed preserved EF. 10/05 patient is alert and oriented and not in any distress. She offers no specific complaints. Denies chest pain or shortness of breath. Denies fever or chills. Cardiology and vascular notes reviewed. Lab results reviewed. 10/06 patient is alert and oriented and offers no specific complaints. CT of the lower extremity results reviewed which showed Moderate cellulitis right distal thigh and marked cellulitis of right calf without any sign of drainable fluid collection/abscesses vascular graft. ID note reviewed 10/07: CT abdomen pelvis report noted. CT of the abdomen and pelvis demonstrated changes from thoracoabdominal aorta repair with findings of the abdominal portion of the repair concerning for underlying infection with aortoenteric fistula. Discussed with vascular surgeon Dr. Burt in details. Patient is recommended to transfer to [facility] for higher level of care. I called the Transfer center and patient has been accepted to [facility]. But they do not have beds available today. Patient will be transferred to [facility] tomorrow morning. Subjective Date of service: 10/07/20 Principal diagnosis: A/C HFpEF, RLE Cellulitis, AF Interval history: Patient seen and examined. Medical records and medication list reviewed. No acute event overnight noted by the RN. Patient denies any chest pain or difficulty breathing. Patient is tolerating diet. Discussed with vascular surgeon in details, called [facility] transfer center and waiting for possible transfer Discussed plan of care at bedside with patient. Objective - Exam Narrative Exam: Constitutional: Alert, cooperative. No acute distress Head, Ears, Nose: Normocephalic, atraumatic. External ears, nose normal Eyes: Conjunctivae/corneas clear. No icterus. No ptosis. Neck: Supple, no meningeal signs Oral: Edentulous, no thrush Cardiovascular: S1, S2 normal. Respiratory: Good air entry, clear to auscultation bilaterally GI: Soft, non-tender; bowel sounds normal. No peritoneal signs Musculoskeletal: Bilateral LE with pedal edema, fragile skin, superficial wounds Skin: No rash or abscess Hem/Lymphatic: No palpable cervical or supraclavicular nodes. No lymphangitis Psych: Mood ok. Affect normal Neurological: Awake, alert, oriented. No gross abnormality - Constitutional Vitals: Vital Signs - 12hr 10/07/20 10/07/20 10/07/20 07:59 08:00 08:11 Temperature 97.8 F Pulse Rate 51 L 49 L Respiratory 18 Rate Blood Pressure 136/45 Blood Pressure [Left] O2 Sat by Pulse 93 96 Oximetry 10/07/20 10/07/20 10:40 10:43 Temperature Pulse Rate 51 L 51 L Respiratory 18 Rate Blood Pressure 137/52 Blood Pressure 137/52 [Left] O2 Sat by Pulse 99 Oximetry - Labs CBC & Chem 7: 10/08/20 05:09 10/08/20 05:09 Labs: Abnormal lab results 10/07/20 10/07/20 10/07/20 Range/Units 10:28 10:28 10:28 PT 25.1 H (12.2-14.9) Sec. INR 2.28 H (0.87-1.13) Sodium 132 L (137-145) mmol/L Chloride 91.0 L (98-107) mmol/L Carbon Dioxide 35 H (22-30) mmol/L BUN 22 H (7-17) mg/dL Glucose 104 H (65-100) mg/dL TSH 6.790 H (0.270-4.200) mlU/mL HEART Score - HEART Score Troponin: Troponin T 0.021 ng/mL (0.00-0.029) 10/03/20 21:03
[2020-10-07 20:00] LABS: Basophils % (Auto) 0.3 % (0.0-1.8); Eosinophils # (Auto) 0.1 K/mm3 (0.0-0.4); Eosinophils % (Auto) 0.8 % (0.0-4.3); Hemoglobin 7.7 gm/dl (10.1-14.3); Lymphocytes # (Auto) 1.6 K/mm3 (1.2-5.4); Lymphocytes % (Auto) 17.2 % (13.4-35.0); Mean Corpuscular HGB Conc 34 % (30-34); Mean Corpuscular Volume 85 fl (79-97); Monocytes # (Auto) 0.9 K/mm3 (0.0-0.8); Monocytes % (Auto) 9.6 % (0.0-7.3); Platelet Count 239 K/mm3 (140-440); Red Blood Count 2.72 M/mm3 (3.65-5.03); Red Cell Distribution Width 15.8 % (13.2-15.2)
[2020-10-07] MEDS: hydrALAZINE 25 MG TAB PO SCH (22:14)
[2020-10-07] MEDS: traZODone 50 MG TAB PO SCH (22:14)
[2020-10-08] MEDS: ACETAMINOPHEN 325 MG TAB PO PRN (05:34)
[2020-10-08] MEDS: LEVOTHYROXINE 75 MCG TAB PO SCH (05:35)
[2020-10-08] MEDS: ONDANSETRON 4 MG/2 ML INJ IV PRN (05:35)
[2020-10-08 05:52] LABS: Basophils # (Auto) 0.1 K/mm3 (0.0-0.1); Basophils % (Auto) 0.5 % (0.0-1.8); Eosinophils # (Auto) 0.1 K/mm3 (0.0-0.4); Eosinophils % (Auto) 1.3 % (0.0-4.3); Hematocrit 26.4 % (30.3-42.9); Hemoglobin 8.6 gm/dl (10.1-14.3); Lymphocytes # (Auto) 1.5 K/mm3 (1.2-5.4); Lymphocytes % (Auto) 14.6 % (13.4-35.0); Mean Corpuscular HGB Conc 33 % (30-34); Mean Corpuscular Volume 85 fl (79-97); Platelet Count 244 K/mm3 (140-440); Red Blood Count 3.09 M/mm3 (3.65-5.03); Red Cell Distribution Width 16.1 % (13.2-15.2)
[2020-10-08 06:11] LABS: Calcium 8.7 mg/dL (8.4-10.2)
[2020-10-08] MEDS: hydrALAZINE 25 MG TAB PO SCH (09:30)
[2020-10-08] MEDS: FUROSEMIDE 40 MG/4 ML INJ IV SCH (09:31)
[2020-10-08] MEDS: PANTOPRAZOLE 40 MG TAB PO SCH (09:32)
[2020-10-08] MEDS: POTASSIUM CHLORIDE ER 10 MEQ TAB PO SCH (09:32)
[2020-10-08] MEDS: CITALOPRAM 10 MG TAB PO SCH (09:32)
[2020-10-08] MEDS: FAMOTIDINE 20 MG TAB PO SCH (09:32)
[2020-10-08] MEDS: METOPROLOL TARTRATE 50 MG TAB PO SCH (09:33)
--- NOTE | 2020-10-08 12:51 | Progress Note ---
Assessment and Plan Cultures: 10/07/2020 Blood culture: no growth so far A/P: 80-year-old female with CHF, hypertension, gastroesophageal reflux disease, COPD, gout, peripheral vascular disease, [facility] was admitted due to worsening bilateral lower extremity swelling and superficial wounds: #Right lower extremity cellulitis, fluid overload, superficial wounds: Improving with antibiotics and diuretics. CT scan showed cellulitis in RLE, no abscess. 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 Vascular following. Afebrile. Awaiting #History of anxiety, depression: On citalopram. Prevents use of linezolid. #Keflex and sulfa drugs allergy: Patient reports every time she takes Keflex, she has to take Benadryl. Per d/w Dr. Ferguson, patient also [facility]. #Atrial fibrillation: On warfarin Recs: -Continue IV vancomycin, target trough: 10-20 mcg/ml -awaiting transfer to [facility] for suspected vascular graft infection Emma Cancino MD, FACP [facility] ([facility] O: [phone] F: [phone] Subjective Date of service: 10/08/20 Principal diagnosis: A/C HFpEF, RLE Cellulitis, AF Interval history: No fever. R leg better today. No complaints. Objective - Exam Narrative Exam: Physical Exam: Constitutional: Alert, cooperative. No acute distress Head, Ears, Nose: Normocephalic, atraumatic. External ears, nose normal Eyes: Conjunctivae/corneas clear. No icterus. No ptosis. Neck: Supple, no meningeal signs Oral: Edentulous, no thrush Cardiovascular: S1, S2 normal. Respiratory: Good air entry, clear to auscultation bilaterally GI: Soft, non-tender; bowel sounds normal. No peritoneal signs Musculoskeletal: Bilateral LE with pedal edema, fragile skin, superficial wounds Skin: No rash or abscess Hem/Lymphatic: No palpable cervical or supraclavicular nodes. No lymphangitis Psych: Mood ok. Affect normal Neurological: Awake, alert, oriented. No gross abnormality - Constitutional Vitals: Vital Signs Temp Pulse Resp BP Pulse Ox 99.7 F H 67 18 95/43 95 10/08/20 08:21 10/08/20 09:33 10/08/20 08:21 10/08/20 09:30 10/08/20 08:21 Temperature -Last 24 Hours Temperature 99.7 F Temperature 97.3 F Temperature 97.8 F Temperature 98.8 F Temperature 98.0 F - Labs CBC & Chem 7: 10/08/20 05:09 10/08/20 05:09 Labs: Abnormal lab results 10/07/20 10/07/20 10/08/20 Range/Units 18:57 18:57 05:09 RBC 2.72 L (3.65-5.03) M/mm3 Hgb 7.7 L (10.1-14.3) gm/dl Hct 23.0 L (30.3-42.9) % RDW 15.8 H (13.2-15.2) % [place] % (Auto) 9.6 H (0.0-7.3) % [place] # (Auto) 0.9 H (0.0-0.8) K/mm3 Seg Neutrophils % 72.1 H (40.0-70.0) % PT 22.6 H (12.2-14.9) Sec. INR 2.00 H (0.87-1.13) Sodium (137-145) mmol/L Chloride (98-107) mmol/L Carbon Dioxide (22-30) mmol/L BUN (7-17) mg/dL Creatinine (0.6-1.2) mg/dL C-Reactive Protein 5.70 H (0.00-1.30) mg/dL 10/08/20 10/08/20 Range/Units 05:09 05:09 RBC 3.09 L (3.65-5.03) M/mm3 Hgb 8.6 L (10.1-14.3) gm/dl Hct 26.4 L (30.3-42.9) % RDW 16.1 H (13.2-15.2) % [place] % (Auto) 10.0 H (0.0-7.3) % [place] # (Auto) 1.0 H (0.0-0.8) K/mm3 Seg Neutrophils % 73.6 H (40.0-70.0) % PT (12.2-14.9) Sec. INR (0.87-1.13) Sodium 135 L (137-145) mmol/L Chloride 92.1 L (98-107) mmol/L Carbon Dioxide 35 H (22-30) mmol/L BUN 27 H (7-17) mg/dL Creatinine 1.3 H (0.6-1.2) mg/dL C-Reactive Protein (0.00-1.30) mg/dL
--- NOTE | 2020-10-08 15:04 | Progress Note ---
Assessment and Plan 80-year-old female with past medical history of hypertension, congestive heart failure, GERD kidney stone COPD and gout was brought from her [facility] due to significant lower extremity swelling over the past 2 weeks. The right lower extremity has been more swollen than the left. The patient states that she was put on antibiotics but it did not improve swelling. Other than the swelling in her legs which are causing her pain, she denies any associated chest pain, shortness of breath, cough, abdominal pain, fever/chills, syncope, weakness, or any other complaints. In the emergency room patient is found to have volume overloaded/CHF exacerbation and proBNP is 3816, troponin 0 0.021. Also patient has bilateral lower extremity cellulitis, WBCs 12.6 10/04 patient is alert and oriented and not in any distress. She offers no specific complaints except some pain in the legs right more than left She denies any fever or chills. Denies chest pain or shortness of breath. Lab results reviewed 10/05 patient is alert and oriented and not in any distress. She offers no specific complaints. Denies chest pain or shortness of breath. Denies fever or chills. Cardiology and vascular notes reviewed. Lab results reviewed. 10/06 patient is alert and oriented and offers no specific complaints. CT of the lower extremity results reviewed. ID note reviewed 10/07: CT abdomen pelvis report noted. CT of the abdomen and pelvis demonstrated changes from thoracoabdominal aorta repair with findings of the abdominal portion of the repair concerning for underlying infection with aortoenteric fistula. Discussed with vascular surgeon Dr. Burt in details. Patient is recommended to transfer to [facility] for higher level of care. I called the Transfer center and patient has been accepted to [facility]. But they do not have beds available today. Patient will be transferred to [facility] tomorrow morning. 10/08: Patient is pending transfer to [place]. cont iv diuretics. follow clinically A/P: Bilateral leg edema/erythema-improving Likely cellulitis right lower extremity more than left Rule out venous insufficiency Patient was treated with clindamycin p.o. at the nursing facility without any improvement in the erythema Since then it only got worse and now has some hemorrhagic blisters Continue vancomycin Levaquin discontinued Patient is allergic to multiple antibiotics including doxycycline, cephalexin and sulfonamides Recent arterial Doppler showed no evidence of PAD Vascular note reviewed and appreciated CT of the lower extremity results reviewed Left leg edema significantly improved Continue gentle diuresis History of ischemic cardiomyopathy Check echocardiogram Chest x-ray reviewed No evidence of pulmonary edema P BNP results reviewed Cardiology consulted and note reviewed Continue IV Lasix Patient has a negative fluid balance of 1935 mL in the past 24 hours Will start on daily potassium supplement of 10 mEq as the serum potassium is trending down secondary to IV Lasix Continue beta-héctor Telemetry Fluid restriction Monitor I's and O's History of atrial fibrillation on warfarin INR is in the therapeutic range Continue warfarin at 2 mg Monitor daily INR Hypertension Fair History of GERD Continue Pepcid History of anxiety/depression continue citalopram and trazodone Hypothyroidism Continue Synthroid Subjective Date of service: 10/08/20 Principal diagnosis: A/C HFpEF, RLE Cellulitis, AF Objective - Constitutional Vitals: Vital Signs - 12hr 10/08/20 10/08/20 10/08/20 03:18 08:21 09:00 Temperature 97.3 F L 99.7 F H Pulse Rate 56 L 64 69 Respiratory 18 18 Rate Blood Pressure 140/51 102/36 O2 Sat by Pulse 100 95 Oximetry 10/08/20 10/08/20 10/08/20 09:30 09:33 13:13 Temperature Pulse Rate 67 67 Respiratory Rate Blood Pressure 95/43 O2 Sat by Pulse 94 Oximetry - Labs CBC & Chem 7: 10/08/20 05:09 10/08/20 05:09 Labs: Abnormal lab results 10/07/20 10/07/20 10/08/20 Range/Units 18:57 18:57 05:09 RBC 2.72 L (3.65-5.03) M/mm3 Hgb 7.7 L (10.1-14.3) gm/dl Hct 23.0 L (30.3-42.9) % RDW 15.8 H (13.2-15.2) % [place] % (Auto) 9.6 H (0.0-7.3) % [place] # (Auto) 0.9 H (0.0-0.8) K/mm3 Seg Neutrophils % 72.1 H (40.0-70.0) % PT 22.6 H (12.2-14.9) Sec. INR 2.00 H (0.87-1.13) Sodium (137-145) mmol/L Chloride (98-107) mmol/L Carbon Dioxide (22-30) mmol/L BUN (7-17) mg/dL Creatinine (0.6-1.2) mg/dL C-Reactive Protein 5.70 H (0.00-1.30) mg/dL 10/08/20 10/08/20 Range/Units 05:09 05:09 RBC 3.09 L (3.65-5.03) M/mm3 Hgb 8.6 L (10.1-14.3) gm/dl Hct 26.4 L (30.3-42.9) % RDW 16.1 H (13.2-15.2) % [place] % (Auto) 10.0 H (0.0-7.3) % [place] # (Auto) 1.0 H (0.0-0.8) K/mm3 Seg Neutrophils % 73.6 H (40.0-70.0) % PT (12.2-14.9) Sec. INR (0.87-1.13) Sodium 135 L (137-145) mmol/L Chloride 92.1 L (98-107) mmol/L Carbon Dioxide 35 H (22-30) mmol/L BUN 27 H (7-17) mg/dL Creatinine 1.3 H (0.6-1.2) mg/dL C-Reactive Protein (0.00-1.30) mg/dL HEART Score - HEART Score Troponin: Troponin T 0.021 ng/mL (0.00-0.029) 10/03/20 21:03
[2020-10-08 15:36] VITALS: BP 143/32
--- NOTE | 2020-10-08 16:33 | Discharge Summary ---
Providers - Providers Date of Admission: 10/06/20 12:02 Date of discharge: 10/08/20 Attending physician: YAS YOU 10/04/20 08:07 Consult to Physician [CONS] Routine Comment: Consulting Provider: ANN-MARIE DAIGLE Physician Instructions: Reason For Exam: leg edema 10/04/20 10:16 Consult to Physician [CONS] Routine Comment: Consulting Provider: JYOTI TA Physician Instructions: Reason For Exam: chf/A fib 10/04/20 19:21 Consult to Wound/ET Nurse [CONS] Urgent Reason For Exam: wound eval 10/06/20 07:59 Consult to Physician [CONS] Routine Comment: Consulting Provider: TOSHIA RICARDO Physician Instructions: Reason For Exam: cellulitis/ antibiotic adjustment 10/06/20 15:35 Midline [Consult to PICC Line RN] [CONS] Routine Reason For Exam: hard stick Type Line:: Midline Primary care physician: TREASURY AGENT Hospitalization Condition: Fair Pertinent studies: Chest x-ray: Lower extremity venous Doppler, lower extremity CT, abdomen pelvis CT, 2D echocardiogram Hospital course: 80-year-old female with past medical history of hypertension, congestive heart failure, GERD, kidney stone, COPD and gout was brought from her [facility] due to significant lower extremity swelling over the past 2 weeks. The right lower extremity has been more swollen than the left. The patient states that she was put on antibiotics but it did not improve swelling. Other than the swelling in her legs which are causing her pain, she denies any associated chest pain, shortness of breath, cough, abdominal pain, fever/chills, syncope, weakness, or any other complaints. In the emergency room patient was found to have volume overloaded/CHF exacerbation and proBNP is 3816, troponin 0 0.021. Also patient has bilateral lower extremity cellulitis, WBCs 12.6. Patient was admitted for further evaluation management, cardiology was consulted. Daily clinical course: 10/04 patient is alert and oriented and not in any distress. She offers no specific complaints except some pain in the legs right more than left She denies any fever or chills. Denies chest pain or shortness of breath. Lab results reviewed. Patient being diuresed and placed on IV antibiotics. 2D echo showed preserved EF. 10/05 patient is alert and oriented and not in any distress. She offers no specific complaints. Denies chest pain or shortness of breath. Denies fever or chills. Cardiology and vascular notes reviewed. Lab results reviewed. 10/06 patient is alert and oriented and offers no specific complaints. CT of the lower extremity results reviewed which showed Moderate cellulitis right distal thigh and marked cellulitis of right calf without any sign of drainable fluid collection/abscesses vascular graft. ID note reviewed 10/07: CT abdomen pelvis report noted. CT of the abdomen and pelvis demonstrated changes from thoracoabdominal aorta repair with findings of the abdominal portion of the repair concerning for underlying infection with aortoenteric fistula. Discussed with vascular surgeon Dr. Burt in details. Patient is recommended to transfer to [facility] for higher level of care. I called the Transfer center and patient has been accepted to [facility]. But they do not have beds available today. Patient will be transferred to [facility] tomorrow morning. 10/08: Patient accepted to [place] today and will be transfer there for possible vascular graft infection. Her accepting physician is Dr. Murray. Patient was given a dose of vitamin K to reverse her INR for possible surgery. Patient's vital monitored and stable. Assessment and plan: --Bilateral leg edema/erythema-improving Likely cellulitis right lower extremity more than left Lower extremity venous Doppler was negative Likely due to underlying CHF exacerbation Recent arterial Doppler showed no evidence of PAD Left leg edema significantly improved Continue gentle diuresis --Right lower extremity cellulitis Patient was treated with clindamycin p.o. at the nursing facility without any improvement in the erythema Since then it only got worse and now has some hemorrhagic blisters Continue vancomycin Levaquin discontinued Patient is allergic to multiple antibiotics including doxycycline, cephalexin and sulfonamides Vascular note reviewed and appreciated: Recent arterial Doppler showed no evidence of PAD CT of the lower extremity results showed Moderate cellulitis right distal thigh and marked cellulitis of right calf without any sign of drainable fluid collection/abscesses vascular graft. 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 Consulted vascular surgeon and recommended to transfer the patient to [facility] for higher level of care --Acute CHF exacerbation with history of ischemic cardiomyopathy 2d echocardiogram showed preserved EF Chest x-ray reviewed No evidence of pulmonary edema P BNP results reviewed Cardiology consulted and note reviewed Placed on IV Lasix, monitor BMP Continue beta-héctor Telemetry Fluid restriction Monitor I's and O's --Atrial fibrillation on warfarin INR is in the therapeutic range Continue warfarin at 2 mg Monitor daily INR --Hypertension Fair --History of GERD Continue Pepcid --History of anxiety/depression continue citalopram and trazodone --Hypothyroidism Continue Synthroid Disposition: - TO HOME OR SELFCARE Final Discharge Diagnosis (Prints w/discharge instructions): Bilateral leg edema. Right lower extremity cellulitis. 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 Acute CHF exacerbation with preserved EF. History of ischemic cardiomyopathy. Atrial fibrillation on Coumadin. Hypertension. History of GERD. History of anxiety/depression. Hypothyroidism with elevated TSH Time spent for discharge: 55 minutes Core Measure Documentation - Palliative Care Palliative Care/ Comfort Measures: Not Applicable - Core Measures Any of the following diagnoses?: none Exam - Physical Exam Narrative exam: Constitutional: Alert, cooperative. No acute distress Head, Ears, Nose: Normocephalic, atraumatic. External ears, nose normal Eyes: Conjunctivae/corneas clear. No icterus. No ptosis. Neck: Supple, no meningeal signs Oral: Edentulous, no thrush Cardiovascular: S1, S2 normal. Respiratory: Good air entry, clear to auscultation bilaterally GI: Soft, non-tender; bowel sounds normal. No peritoneal signs Musculoskeletal: Bilateral LE with pedal edema, fragile skin, superficial wounds Skin: No rash or abscess Hem/Lymphatic: No palpable cervical or supraclavicular nodes. No lymphangitis Psych: Mood ok. Affect normal Neurological: Awake, alert, oriented. No gross abnormality - Constitutional Vitals: Temp Pulse Resp BP Pulse Ox 98.8 F 58 L 16 143/32 97 10/08/20 15:41 10/08/20 15:41 10/08/20 15:41 10/08/20 15:41 10/08/20 15:41 Plan Follow up with: PRIMARY CAREMD [Primary Care Provider] - 3-5 Days Forms: Warfarin Discharge Instruction
[2020-10-08] MEDS ORDERED: WARFARIN 1 MG TAB PO SCH (17:00)
--- NOTE | 2020-10-08 17:32 | Progress Note ---
Assessment and Plan Awaiting transfer for eval and mgmt of possible vascular graft infection. Coumadin held/reversed in anticipation of surgical intervention. Otherwise no changes to plan of care from a cardiac perspective today. Pt seen in conjunction with Dr. Grewal, who agrees with the assessment and plan of care. - Patient Problems (1) COPD (chronic obstructive pulmonary disease) Current Visit: Yes Status: Chronic (2) Acute on chronic heart failure with preserved ejection fraction (HFpEF) Current Visit: Yes Status: Acute (3) Cellulitis of right leg Current Visit: Yes Status: Acute (4) Hyponatremia Current Visit: Yes Status: Acute (5) Anemia Current Visit: Yes Status: Acute (6) Atrial fibrillation Current Visit: Yes Status: Chronic Qualifiers: Atrial fibrillation type: unspecified chronic Qualified Code(s): I48.20 - Chronic atrial fibrillation, unspecified; I48.2 - Chronic atrial fibrillation (7) Hypothyroidism Current Visit: Yes Status: Chronic (8) CAD (coronary artery disease) Current Visit: Yes Status: Chronic Qualifiers: [place] vs. transplanted heart: [place] heart Associated angina: without angina (9) Hx of CABG Current Visit: Yes Status: Chronic (10) Hypertension Current Visit: Yes Status: Chronic Qualifiers: Hypertension type: essential hypertension Qualified Code(s): I10 - Essential (primary) hypertension (11) HLD (hyperlipidemia) Current Visit: Yes Status: Chronic Qualifiers: Hyperlipidemia type: mixed hyperlipidemia Qualified Code(s): E78.2 - Mixed hyperlipidemia (12) Statin intolerance Current Visit: Yes Status: Chronic (13) GERD (gastroesophageal reflux disease) Current Visit: Yes Status: Chronic (14) Gout Current Visit: Yes Status: Chronic Subjective Date of service: 10/08/20 Principal diagnosis: A/C HFpEF, RLE Cellulitis, AF Interval history: Resting peacefully upon assessment. No new complaints. Tele reviewed - AFlutter 60-70s, no events overnight. Objective Last Vital Signs Temp 98.8 F 10/08/20 15:41 Pulse 58 L 10/08/20 15:41 Resp 16 10/08/20 15:41 BP 143/32 10/08/20 15:41 Pulse Ox 97 10/08/20 15:41 - Physical Examination General: No Apparent Distress HEENT: Positive: EOMI, Normocephaly, Mucus Membranes Moist Neck: Positive: neck supple, trachea midline. Negative: JVD/HJR Cardiac: Positive: Irregularly Regular, S1/S2 Lungs: Positive: Decreased Breath Sounds (bilaterally) Neuro: Positive: Grossly Intact Abdomen: Positive: Soft. Negative: Tender Skin: Positive: Other (ERIC hose on RLE) Extremities: Present: edema (RLE > LLE), warm - Labs and Meds Coagulation 10/08/20 Range/Units 05:09 PT 22.6 H (12.2-14.9) Sec. INR 2.00 H (0.87-1.13) CBC 10/07/20 10/08/20 Range/Units 18:57 05:09 WBC 9.4 10.1 (4.5-11.0) K/mm3 RBC 2.72 L 3.09 L (3.65-5.03) M/mm3 Hgb 7.7 L 8.6 L (10.1-14.3) gm/dl Hct 23.0 L 26.4 L (30.3-42.9) % Plt Count 239 244 (140-440) K/mm3 Lymph # (Auto) 1.6 1.5 (1.2-5.4) K/mm3 [place] # (Auto) 0.9 H 1.0 H (0.0-0.8) K/mm3 Eos # (Auto) 0.1 0.1 (0.0-0.4) K/mm3 Baso # (Auto) 0.0 0.1 (0.0-0.1) K/mm3 Comprehensive Metabolic Panel 10/08/20 Range/Units 05:09 Sodium 135 L (137-145) mmol/L Potassium 4.4 (3.6-5.0) mmol/L Chloride 92.1 L (98-107) mmol/L Carbon Dioxide 35 H (22-30) mmol/L BUN 27 H (7-17) mg/dL Creatinine 1.3 H (0.6-1.2) mg/dL Glucose 100 (65-100) mg/dL Calcium 8.7 (8.4-10.2) mg/dL - Imaging and Cardiology EKG: report reviewed, image reviewed Echo: report reviewed (10/03/2020 - mild concentric LVH, borderline low LV sys fxn, EF 50%, transmitral Doppler flow pattern suggestive of restrictive physiology, RV mildly dilated, LA mildly dilated, RA mildly dilated, mild TR, RVSP 28mmHg) Cardiac cath: report reviewed (2005 normal LV fxn, LAD 100% mid w/patent vein graft to mid LAD, VALENCIA occluded to diag, Cfx 70% prox and 100% obtuse marginal w/patent vein graft, RCA 100% w/patent but stenotic vein graft) - Telemetry EKG Rhythm: Atrial Flutter - EKG Supraventricular dysrhythmia: atrial fibrillation AV and intraventricular conduction: right bundle branch block
[2020-10-09] MEDS ORDERED: VANCOMYCIN 750 MG in SODIUM CHLORIDE 0.9% 250ML 250 ML IV SCH (10:00)
== END 2020-10-08 18:30 | disposition short-term general hospital (02) | DRG 602 ==
LOC: ED 12:07 → 4A 22:12 → OBSVTOIN 10-06 12:02
PROVIDERS: ADMIT Hospitalist; ATTEND Internal Medicine
DX: L03.115 Cellulitis of right lower limb (principal); I50.33 Acute on chronic diastolic (congestive) heart failure; T82.7XXA Infection and inflammatory reaction due to other cardiac and vascular devices, implants and grafts, initial encounter; E87.1 Hypo-osmolality and hyponatremia; I42.8 Other cardiomyopathies; I77.2 Rupture of artery; I48.20 Chronic atrial fibrillation, unspecified; E87.70 Fluid overload, unspecified; K21.9 Gastro-esophageal reflux disease without esophagitis; I11.0 Hypertensive heart disease with heart failure; F41.9 Anxiety disorder, unspecified; F32.9 Major depressive disorder, single episode, unspecified; D72.829 Elevated white blood cell count, unspecified; J44.9 Chronic obstructive pulmonary disease, unspecified; E78.2 Mixed hyperlipidemia; E03.9 Hypothyroidism, unspecified; Y83.8 Other surgical procedures as the cause of abnormal reaction of the patient, or of later complication, without mention of misadventure at the time of the procedure; D64.9 Anemia, unspecified; M10.9 Gout, unspecified; Z86.718 Personal history of other venous thrombosis and embolism; Z79.01 Long term (current) use of anticoagulants; Z87.442 Personal history of urinary calculi; Z88.8 Allergy status to other drugs, medicaments and biological substances; Z88.2 Allergy status to sulfonamides; Y92.89 Other specified places as the place of occurrence of the external cause; Z95.1 Presence of aortocoronary bypass graft
CPT/HCPCS: 36415; 71046; 74177; 80048; 80053; 80202; 83735; 83880; 84443; 84484; 85025; 85027; 85610; 86140; 87040; 93005; 93306; 93925; 96374; G0378; J1644; J1940; J2405; J3370; J7050; Q9967